=== PATIENT | male | born 1940 | race Caucasian/White ===

== ENCOUNTER 2018-01-15 17:04 | Inpatient (IN) | payer MEDICARE, MEDICAID ==
[~2018-01-15] VITALS: Ht 167.6 cm; Wt 123.3 kg
--- NOTE | ~2018-01-15 | EC ---
PATIENT:JEEVAN JOSEPH DATE OF SERVICE: 01/15/18 SEX: M MEDICAL RECORD: [id number] DATE OF : 38 LOCATION:D.M2 D.212 AGE OF PATIENT: 77 ADMISSION DATE: 01/15/18 REFERRING PHYSICIAN: INTERPRETING PHYSICIAN: CJ BRANDON MD ECHOCARDIOGRAM REPORT ECHO CHARGES 4 ECHO COMPLETE Date: 01/18 CLINICAL DIAGNOSIS: DYSPNEA ECHOCARDIOGRAPHIC MEASUREMENTS (adult normal given) AC root (d.<3.7cm) 4.3 cm LV Septum d (<1.2 cm> 2.0 cm Valve Excursion 2.2 cm LV Septum (systole) 2.2 cm Left Atria (s.<4.0cm> 4.3 cm LVPW d(<1.2cm) 1.8 cm RV (d.<2.3cm) 4.4 cm LVPW (sytole) 2.1 cm LV diastole(<5.6CM) 6.1 cm MV E-F(>70mm/sec) cm LV systole 5.1 cm LVOT Diameter 2.0 cm MV exc.(>10mm) 1.6 cm Est.ejection fraction (50-75%) % DOPPLER: LVIT cm/sec A 67.0 cm/sec E 40.0 cm/sec LA cm/sec RVSP 17 mmHg LVOT 102 cm/sec AOP1/2T m/s Asc. Ao 131 cm/sec RVOT 99 cm/sec RA cm/sec PA 137 cm/sec AV Gradient Peak 6.86 mmHg AV Mean 1.35 mmHg AV Area 2.4 cm MV Gradient Peak 3.81 mmHg MV Mean 1.35 mmHg MV Area cm COMMENTS: Clean In Places Operator: Svetlana EATON Pulping Machine Operator: 1 Dr. Brandon TAPE# PACS Pericardial Effusion N DATE OF SERVICE: 01/18/2018 FINDINGS: 1. Left ventricular chamber size is within normal limits. Left ventricular systolic function is normal. Overall ejection fraction estimated at 55% to 60%. 2. Left atrium, right atrium, and right ventricle chamber size are mildly dilated. Left atrium measures 4.3 cm. 3. Valvular structures have normal structure and motion. 4. Doppler interrogation only reveals trace tricuspid regurgitation, no other valvular insufficiency or stenosis. ECHOCARDIOGRAM REPORT [id number] JEEVAN JOSEPH 5. No evidence of pericardial effusion or left ventricular thrombus. TRANSINT:[id number] Voice Confirmation ID: [id number] DOCUMENT ID: [id number] CJ BRANDON MD at 1725 CC: [id number] DICTATION DATE: 01/18/18 1212 LVN HOME HEALTH: 01/18/18 1228 ADM IN [facility] [address] [place] [address]
--- NOTE | ~2018-01-15 | CN ---
PATIENT NAME:JEEVAN JOSEPH MEDICAL RECORD: [id number] : 38 LOCATION:D.MS Rothman2208 ADMIT DATE: 01/15/18 ACCOUNT: [id number] CONSULTING PHYSICIAN: CARLOS FULLER MD REFERRING PHYSICIAN: NGOZI JUAREZ MD DATE OF CONSULTATION: 01/16/2018 CONSULT REQUESTING PHYSICIAN: Ngozi Juarez MD REASON FOR CONSULTATION: Acute exacerbation of chronic obstructive pulmonary disease and fever. HISTORY OF PRESENT ILLNESS: Mr. Joseph is a 77-year-old gentleman, very well known to me. According to the , the patient is sick. The patient does have a history of COPD, home oxygen dependent. he is sick for the last few days. He is coughing. He has a fever of 101.5. He also is complaining of chest pain. There are also chills and associated nausea and vomiting. The cough is productive with greenish color sputum. His chest hurts when he coughs. REVIEW OF SYSTEMS: Mainly in the history of present illness. PAST MEDICAL HISTORY: 1. COPD. 2. Chronic hypoxic respiratory failure. 3. Emphysema. 4. Coronary artery disease. 5. Hypertension. 6. Diabetes mellitus. 7. Neuropathy. 8. Anxiety, depression. PAST SURGICAL HISTORY: 1. He has a back surgery. 2. Prostatectomy. 3. Leg surgery. 4. Cardiac catheterization and stent placement. ALLERGIES: HE IS ALLERGIC TO PENICILLIN. MEDICATIONS: On Meditech is reviewed. He is on IV Levaquin. PERSONAL AND SOCIAL HISTORY: The patient has a history of smoking. He quit 3 years ago. He is a nondrinker. FAMILY HISTORY: Significant for cardiovascular disease and diabetes. PHYSICAL EXAMINATION: GENERAL: Now, the patient is lying comfortably in bed. He is not in acute distress. VITAL SIGNS: The blood pressure is 165/85, pulse is 84, respiration is 19, temperature is 97.8, SpO2 is 91% on 4.5 liter nasal cannula. HEENT: Conjunctivae are pink. Sclerae are not icteric. NECK: Supple, no JVD. CHEST: The chest excursion is minimal with bilateral crackles. No wheezing. HEART: Rhythm regular, normal sound, no murmur. CONSULT REPORT [id number] JEEVAN JOSEPH ABDOMEN: Soft, bowel sounds present. No hepatosplenomegaly. RECTAL: Deferred. EXTREMITIES: No cyanosis, no clubbing, no pedal edema. SKIN: Warm, normal turgor. CENTRAL NERVOUS SYSTEM: The patient is awake and alert. There are no obvious cranial abnormality. The gait was not tested. CHEST RADIOGRAPH: There is a patchy infiltrate, bibasilar. There is also prominent pulmonary vessel increased interstitial marking. OTHER LABORATORY DATA: CBC: WBC 8.3, hemoglobin 14.8, hematocrit 45.8, the platelet count is 216, the neutrophils are 90.7%. ABG: The pH is 7.33, pCO2 of 64.3, the pO2 is 66. IMPRESSION: 1. Nyhrp-vf-fpfsqnz hypoxic hypercapnic respiratory failure. 2. Respiratory acidosis. 3. Acute exacerbation of chronic obstructive pulmonary disease. 4. Pneumonia consistent with community-acquired pneumonia, bibasilar. 5. Pulmonary edema. 6. Elevated proBNP consistent with a congestive heart failure. RECOMMENDATION: 1. Continue Levaquin. 2. Methylprednisolone IV. 3. Albuterol ipratropium nebulizer. 4. Brovana, budesonide nebulizer. 5. We will diurese the patient. Follow up on the CT scan of the chest. Dr. Juarez, thank you for involving me in the care of Mr. Joseph. TRANSINT:[id number] Voice Confirmation ID: [id number] DOCUMENT ID: [id number] CARLOS FULLER MD at 1208 CC: NGOZI JUAREZ MD [id number] DICTATION DATE: 01/16/18 165 INSULATOR TECHNICIAN: 01/16/18 1741 ADM IN [place] [id number] [place] [address]
[~2018-01-15 17:04] MED LIST: ASPIRIN325 MG PO; BAYER CHEWABLE81 MG PO; CATAPRES0.1 MG PO; CELEXA20 MG PO; COMBIGAN OPHT DR5 ML EACH EYE; FLOMAX0.4 MG PO; GLUCOPHAGE500 MG PO; HYDROCHLOROTHIA25 MG PO; HYDROCODON-ACE1 EAC6 PO; HYDROCODON-ACE1 EAC7 PO; LASIX20 MG PO; LEVAQUIN750 MG PO; LIPITOR10 MG PO; MUCINEX DM ER1 EAC1 PO; MYRBETRIQ50 MG PO; OMNICEF300 MG PO; PHENERGAN DM SYR5 ML PO; PLAVIX75 MG PO; PREDNISONE20 MG PO; PROAIR HFA8.5 GM INH; PROTONIX40 MG PO; SALINE NASAL SP45 ML NS; VALIUM5 MG PO; ZESTRIL20 MG PO; myrbetriq PO
[2018-01-15 18:00] LABS: BASOPHILS 0.2 % (0-2); HEMATOCRIT 45.1 % (42.0-54.0); HEMOGLOBIN 14.4 g/dL (13.5-17.5); IMMATURE GRANULOCYTES 0.2 % (0-5); LYMPHOCYTES 31.1 % (15-50); MCH 32.6 pg (26.0-34.0); MCHC 31.9 g/dL (31.0-37.0); MEAN PLATELET VOLUME 11.1 fL (7.4-10.4); MONOCYTES 6.9 % (2-11); NEUTROPHILS 57.6 % (40-80); RBC 4.42 10x6/uL (4.20-6.10); WBC 8.3 10x3/uL (4.8-10.8)
[2018-01-15 18:10] LABS: PLATELET COUNT 182 10x3/uL (130-400)
[2018-01-15 18:15] LABS: ALBUMIN 3.4 g/dL (3.4-5.0); ALKALINE PHOSPHATASE 73 U/L (46-116); ALT (SGPT) 19 U/L (10-68); CALC OSMOLALITY 297 mosm/kg (275-300); CALCIUM 8.9 mg/dL (8.5-10.1); CARBON DIOXIDE 33.8 mmol/L (21.0-32.0); CHLORIDE - SERUM 103 mmol/L (98-107); CREATININE - SERUM 1.4 mg/dL (0.6-1.3); GLUCOSE 149 mg/dL (74-106); POTASSIUM - SERUM 3.8 mmol/L (3.5-5.1); PROTEIN - SERUM 6.3 g/dL (6.4-8.2); SODIUM 145 mmol/L (136-145); UREA NITROGEN 28 mg/dL (7-18); eGFR NON AFRICAN AMERICAN 52 mL/min (90-120)
[2018-01-15 18:18] LABS: INR 1.02 (0.85-1.17)
[2018-01-15 18:19] LABS: APTT 28.5 SECONDS (22.8-39.4)
[2018-01-15 18:20] LABS: D-DIMER-QUANTITATIVE 0.92 ug/mLFEU (0.20-0.54)
[2018-01-15 18:37] LABS: CKMB 1.2 U/L (0.0-3.6); CREATINE KINASE 30 UL (21-232); PRO BNP 517 pg/mL (0-450); TROPONIN-I < 0.017 ng/mL (0.000-0.060)
[2018-01-15] MEDS ORDERED: OXYBUTYNIN CHLOR5 MG PO (21:04)
[2018-01-15] MEDS ORDERED: LYRICA75 MG PO (21:05)
[2018-01-15 21:11] VITALS: BP 160/79
[2018-01-16] VITALS (7 sets, daily range): BP systolic 100–170; BP diastolic 73–85; BMI 40.1; BMI 40.0
[2018-01-16 11:53] LABS: BASOPHILS 0 % (0-2); EOSINOPHILS 0 % (0-7); HEMATOCRIT 45.8 % (42.0-54.0); HEMOGLOBIN 14.8 g/dL (13.5-17.5); IMMATURE GRANULOCYTES 0.2 % (0-5); LYMPHOCYTES 6.8 % (15-50); MCH 32.5 pg (26.0-34.0); MCHC 32.3 g/dL (31.0-37.0); MCV 100.4 fL (80.0-100.0); MEAN PLATELET VOLUME 11.1 fL (7.4-10.4); MONOCYTES 2.3 % (2-11); NEUTROPHILS 90.7 % (40-80); PLATELET COUNT 216 10x3/uL (130-400); RBC 4.56 10x6/uL (4.20-6.10); RDW 12.7 % (11.5-14.5); WBC 8.3 10x3/uL (4.8-10.8)
[2018-01-16 12:04] LABS: ALBUMIN 3.3 g/dL (3.4-5.0); ANION GAP 13.9 mmol/L (8-16); BILIRUBIN - TOTAL 0.32 mg/dL (0.2-1.3); CALCIUM 9.2 mg/dL (8.5-10.1); CARBON DIOXIDE 31.1 mmol/L (21.0-32.0); CREATININE - SERUM 1.3 mg/dL (0.6-1.3); PROTEIN - SERUM 6.8 g/dL (6.4-8.2)
[2018-01-17] VITALS: BP 159/82
[2018-01-17 04:00] VITALS: BP 138/73
[2018-01-17 05:56] LABS: BASOPHILS 0 % (0-2); EOSINOPHILS 0 % (0-7); HEMATOCRIT 45.4 % (42.0-54.0); HEMOGLOBIN 14.7 g/dL (13.5-17.5); IMMATURE GRANULOCYTES 0.2 % (0-5); LYMPHOCYTES 7.7 % (15-50); MCH 32.2 pg (26.0-34.0); MCHC 32.4 g/dL (31.0-37.0); MCV 99.3 fL (80.0-100.0); MEAN PLATELET VOLUME 11.5 fL (7.4-10.4); MONOCYTES 4.2 % (2-11); NEUTROPHILS 87.9 % (40-80); PLATELET COUNT 229 10x3/uL (130-400); RBC 4.57 10x6/uL (4.20-6.10); RDW 12.7 % (11.5-14.5); WBC 9.8 10x3/uL (4.8-10.8)
[2018-01-17 06:14] LABS: ALBUMIN 3.2 g/dL (3.4-5.0); ANION GAP 9.3 mmol/L (8-16); BILIRUBIN - TOTAL 0.3 mg/dL (0.2-1.3); CALCIUM 9.1 mg/dL (8.5-10.1); CARBON DIOXIDE 33.6 mmol/L (21.0-32.0); CREATININE - SERUM 1.1 mg/dL (0.6-1.3); POTASSIUM - SERUM 3.9 mmol/L (3.5-5.1); PROTEIN - SERUM 6.4 g/dL (6.4-8.2)
[2018-01-17 08:53] VITALS: BP 161/71
[2018-01-17 12:36] VITALS: BP 136/63
[2018-01-17 15:38] VITALS: BP 166/88
[2018-01-18 04:00] VITALS: BP 179/83
[2018-01-18 05:54] LABS: BASOPHILS 0 % (0-2); EOSINOPHILS 0 % (0-7); HEMOGLOBIN 14.5 g/dL (13.5-17.5); IMMATURE GRANULOCYTES 0.2 % (0-5); LYMPHOCYTES 7.1 % (15-50); MCH 32.2 pg (26.0-34.0); MCHC 32.2 g/dL (31.0-37.0); MEAN PLATELET VOLUME 11.4 fL (7.4-10.4); MONOCYTES 5.3 % (2-11); NEUTROPHILS 87.4 % (40-80); PLATELET COUNT 210 10x3/uL (130-400); RDW 12.9 % (11.5-14.5); WBC 9.6 10x3/uL (4.8-10.8)
[2018-01-18 06:15] LABS: ANION GAP 6.9 mmol/L (8-16); BILIRUBIN - TOTAL 0.2 mg/dL (0.2-1.3); CALCIUM 9.1 mg/dL (8.5-10.1); CARBON DIOXIDE 36.3 mmol/L (21.0-32.0); CREATININE - SERUM 1.2 mg/dL (0.6-1.3); POTASSIUM - SERUM 4.2 mmol/L (3.5-5.1); PROTEIN - SERUM 6.1 g/dL (6.4-8.2)
[2018-01-18 08:44] VITALS: BP 144/75
[2018-01-18 11:50] VITALS: BP 130/70
[2018-01-18 16:44] VITALS: BP 132/68
[2018-01-18 21:06] VITALS: BP 126/71
[2018-01-19 01:46] VITALS: BP 125/61
[2018-01-19 05:31] LABS: BASOPHILS 0 % (0-2); EOSINOPHILS 0 % (0-7); HEMATOCRIT 45.3 % (42.0-54.0); HEMOGLOBIN 14.5 g/dL (13.5-17.5); IMMATURE GRANULOCYTES 0.2 % (0-5); LYMPHOCYTES 10.6 % (15-50); MCH 32.4 pg (26.0-34.0); MCV 101.1 fL (80.0-100.0); MEAN PLATELET VOLUME 11.5 fL (7.4-10.4); MONOCYTES 5.3 % (2-11); NEUTROPHILS 83.9 % (40-80); PLATELET COUNT 205 10x3/uL (130-400); RBC 4.48 10x6/uL (4.20-6.10); RDW 12.9 % (11.5-14.5); WBC 9.6 10x3/uL (4.8-10.8)
[2018-01-19 05:40] VITALS: BP 117/56
[2018-01-19 05:51] LABS: ALBUMIN 2.7 g/dL (3.4-5.0); ANION GAP 8.3 mmol/L (8-16); BILIRUBIN - TOTAL 0.28 mg/dL (0.2-1.3); CALCIUM 8.8 mg/dL (8.5-10.1); CARBON DIOXIDE 34.9 mmol/L (21.0-32.0); CREATININE - SERUM 1.3 mg/dL (0.6-1.3); POTASSIUM - SERUM 4.2 mmol/L (3.5-5.1); PROTEIN - SERUM 5.7 g/dL (6.4-8.2)
[2018-01-19 08:33] VITALS: BP 130/70
[2018-01-19 11:41] VITALS: BP 111/66
[2018-01-19 15:37] VITALS: BP 119/76
[2018-01-19 21:09] VITALS: BP 135/70
[2018-01-20 01:02] VITALS: BP 145/65
[2018-01-20 05:35] LABS: BASOPHILS 0 % (0-2); EOSINOPHILS 0 % (0-7); HEMATOCRIT 45.9 % (42.0-54.0); HEMOGLOBIN 14.9 g/dL (13.5-17.5); IMMATURE GRANULOCYTES 0.3 % (0-5); LYMPHOCYTES 11.6 % (15-50); MCH 32.5 pg (26.0-34.0); MCHC 32.5 g/dL (31.0-37.0); MCV 100.2 fL (80.0-100.0); MEAN PLATELET VOLUME 11.2 fL (7.4-10.4); NEUTROPHILS 81.1 % (40-80); PLATELET COUNT 203 10x3/uL (130-400); RBC 4.58 10x6/uL (4.20-6.10); RDW 12.7 % (11.5-14.5); WBC 9.7 10x3/uL (4.8-10.8)
[2018-01-20 06:17] LABS: ALBUMIN 2.8 g/dL (3.4-5.0); ANION GAP 7.1 mmol/L (8-16); BILIRUBIN - TOTAL 0.3 mg/dL (0.2-1.3); CALCIUM 8.5 mg/dL (8.5-10.1); CARBON DIOXIDE 36.1 mmol/L (21.0-32.0); CREATININE - SERUM 1.4 mg/dL (0.6-1.3); POTASSIUM - SERUM 4.2 mmol/L (3.5-5.1); PROTEIN - SERUM 5.8 g/dL (6.4-8.2)
[2018-01-20 08:36] VITALS: BP 120/81
[2018-01-20 11:34] VITALS: BP 136/76
[2018-01-20 15:42] VITALS: BP 142/78
[2018-01-20 21:15] VITALS: BP 138/76
[2018-01-21 01:05] VITALS: BP 147/71
[2018-01-21 05:16] VITALS: BP 146/72
[2018-01-21 06:01] LABS: BASOPHILS 0 % (0-2); EOSINOPHILS 0 % (0-7); HEMATOCRIT 45.7 % (42.0-54.0); HEMOGLOBIN 14.5 g/dL (13.5-17.5); IMMATURE GRANULOCYTES 0.2 % (0-5); LYMPHOCYTES 10.4 % (15-50); MCH 31.7 pg (26.0-34.0); MCHC 31.7 g/dL (31.0-37.0); MCV 99.8 fL (80.0-100.0); MEAN PLATELET VOLUME 11.5 fL (7.4-10.4); MONOCYTES 5.5 % (2-11); NEUTROPHILS 83.9 % (40-80); PLATELET COUNT 217 10x3/uL (130-400); RBC 4.58 10x6/uL (4.20-6.10); RDW 12.6 % (11.5-14.5); WBC 9.9 10x3/uL (4.8-10.8)
[2018-01-21 06:16] LABS: ALBUMIN 2.6 g/dL (3.4-5.0); ANION GAP 5.4 mmol/L (8-16); BILIRUBIN - TOTAL 0.3 mg/dL (0.2-1.3); CALCIUM 8.4 mg/dL (8.5-10.1); CARBON DIOXIDE 36.9 mmol/L (21.0-32.0); CREATININE - SERUM 1.3 mg/dL (0.6-1.3); POTASSIUM - SERUM 4.3 mmol/L (3.5-5.1); PROTEIN - SERUM 5.5 g/dL (6.4-8.2)
[2018-01-21 07:54] VITALS: BP 137/80
[2018-01-21 13:46] VITALS: BP 104/67
[2018-01-21 15:29] VITALS: BP 126/75
[2018-01-21 21:33] VITALS: BP 122/65
[2018-01-22 05:11] LABS: BASOPHILS 0 % (0-2); EOSINOPHILS 0 % (0-7); HEMATOCRIT 44.9 % (42.0-54.0); HEMOGLOBIN 14.5 g/dL (13.5-17.5); IMMATURE GRANULOCYTES 0.3 % (0-5); LYMPHOCYTES 8.8 % (15-50); MCH 32.1 pg (26.0-34.0); MCHC 32.3 g/dL (31.0-37.0); MCV 99.3 fL (80.0-100.0); MEAN PLATELET VOLUME 11.8 fL (7.4-10.4); MONOCYTES 5.7 % (2-11); NEUTROPHILS 85.2 % (40-80); PLATELET COUNT 188 10x3/uL (130-400); RBC 4.52 10x6/uL (4.20-6.10); RDW 12.7 % (11.5-14.5); WBC 10.5 10x3/uL (4.8-10.8)
[2018-01-22 05:27] LABS: INR 1.12 (0.85-1.17)
[2018-01-22 06:01] LABS: ALBUMIN 2.5 g/dL (3.4-5.0); ALKALINE PHOSPHATASE 66 U/L (46-116); ALT (SGPT) 24 U/L (10-68); CALC OSMOLALITY 301 mosm/kg (275-300); CALCIUM 8.7 mg/dL (8.5-10.1); CARBON DIOXIDE 35.3 mmol/L (21.0-32.0); CHLORIDE - SERUM 102 mmol/L (98-107); CREATININE - SERUM 1.3 mg/dL (0.6-1.3); GLUCOSE 231 mg/dL (74-106); POTASSIUM - SERUM 4.2 mmol/L (3.5-5.1); PROTEIN - SERUM 5.4 g/dL (6.4-8.2); SODIUM 141 mmol/L (136-145); UREA NITROGEN 51 mg/dL (7-18); eGFR NON AFRICAN AMERICAN 57 mL/min (90-120)
[2018-01-22 06:04] LABS: C-REACTIVE PROTEIN < 0.2 mg/dL (0.0-0.9)
[2018-01-22 06:12] VITALS: BP 150/78
[2018-01-22 09:14] VITALS: BP 132/84
[2018-01-22 11:40] VITALS: BP 88/48
[2018-01-22 15:36] VITALS: BP 89/52
[2018-01-22 20:00] VITALS: BP 90/51
[2018-01-23] VITALS: BP 93/58
[2018-01-23 04:00] VITALS: BP 96/58
[2018-01-23 07:59] VITALS: BP 96/58
[2018-01-23 11:27] VITALS: BP 89/51
[2018-01-23 13:47] LABS: HEMOGLOBIN 13.5 g/dL (13.5-17.5); MCH 32.1 pg (26.0-34.0); MCHC 32.1 g/dL (31.0-37.0); MCV 99.8 fL (80.0-100.0); MEAN PLATELET VOLUME 11.6 fL (7.4-10.4); PLATELET COUNT 219 10x3/uL (130-400); RBC 4.21 10x6/uL (4.20-6.10); RDW 12.8 % (11.5-14.5)
[2018-01-23 13:58] LABS: ANION GAP 8.3 mmol/L (8-16); CALCIUM 8.6 mg/dL (8.5-10.1); CARBON DIOXIDE 33.9 mmol/L (21.0-32.0); POTASSIUM - SERUM 4.2 mmol/L (3.5-5.1)
[2018-01-23 13:59] LABS: CREATININE - SERUM 1.7 mg/dL (0.6-1.3)
[2018-01-23 14:22] LABS: WBC 18.3 10x3/uL (4.8-10.8)
[2018-01-23 15:09] LABS: LYMPHOCYTES 9 % (15-50); NEUTROPHILS 91 % (40-80); PLATELET ESTIMATE NORMAL
[2018-01-23 15:22] VITALS: BP 101/59
[2018-01-23 20:00] VITALS: BP 80/44
[2018-01-23 23:58] LABS: HEMATOCRIT 33.5 % (42.0-54.0); LYMPHOCYTES 6.2 % (15-50); MCH 31.7 pg (26.0-34.0); MCHC 32.8 g/dL (31.0-37.0); MCV 96.5 fL (80.0-100.0); MEAN PLATELET VOLUME 10.6 fL (7.4-10.4); NEUTROPHILS 87.3 % (40-80); PLATELET COUNT 199 10x3/uL (130-400); RBC 3.47 10x6/uL (4.20-6.10); RDW 12.5 % (11.5-14.5); WBC 13.3 10x3/uL (4.8-10.8)
[2018-01-24] VITALS (14 sets, daily range): BP systolic 72–109; BP diastolic 38–64
[2018-01-24 00:08] LABS: ANION GAP 6.3 mmol/L (8-16); CALCIUM 8.1 mg/dL (8.5-10.1); POTASSIUM - SERUM 4.3 mmol/L (3.5-5.1)
[2018-01-24 00:11] LABS: CREATININE - SERUM 2.2 mg/dL (0.6-1.3)
[2018-01-24 08:04] LABS: BASOPHILS 0 % (0-2); EOSINOPHILS 0.1 % (0-7); HEMATOCRIT 31.1 % (42.0-54.0); HEMOGLOBIN 10.2 g/dL (13.5-17.5); IMMATURE GRANULOCYTES 0.5 % (0-5); LYMPHOCYTES 11.7 % (15-50); MCH 31.9 pg (26.0-34.0); MCHC 32.8 g/dL (31.0-37.0); MCV 97.2 fL (80.0-100.0); MEAN PLATELET VOLUME 11.2 fL (7.4-10.4); MONOCYTES 8.3 % (2-11); NEUTROPHILS 79.4 % (40-80); PLATELET COUNT 218 10x3/uL (130-400); RDW 12.4 % (11.5-14.5); WBC 13.1 10x3/uL (4.8-10.8)
[2018-01-24 08:24] LABS: ANION GAP 5.3 mmol/L (8-16); CALCIUM 8.6 mg/dL (8.5-10.1); CARBON DIOXIDE 35.2 mmol/L (21.0-32.0); CREATININE - SERUM 2.2 mg/dL (0.6-1.3); POTASSIUM - SERUM 4.5 mmol/L (3.5-5.1)
[2018-01-24 18:00] LABS: BASOPHILS 0.1 % (0-2); EOSINOPHILS 0 % (0-7); HEMATOCRIT 29.1 % (42.0-54.0); HEMOGLOBIN 9.6 g/dL (13.5-17.5); IMMATURE GRANULOCYTES 0.4 % (0-5); LYMPHOCYTES 7.5 % (15-50); MCH 31.6 pg (26.0-34.0); MCV 95.7 fL (80.0-100.0); MEAN PLATELET VOLUME 11.5 fL (7.4-10.4); MONOCYTES 10.5 % (2-11); NEUTROPHILS 81.5 % (40-80); PLATELET COUNT 255 10x3/uL (130-400); RBC 3.04 10x6/uL (4.20-6.10); RDW 12.5 % (11.5-14.5)
[2018-01-24 18:08] LABS: WBC 18.5 10x3/uL (4.8-10.8)
[2018-01-24 18:38] LABS: ALBUMIN 2.2 g/dL (3.4-5.0); ANION GAP 8.9 mmol/L (8-16); BILIRUBIN - TOTAL 0.34 mg/dL (0.2-1.3); CALCIUM 8.1 mg/dL (8.5-10.1); CARBON DIOXIDE 31.9 mmol/L (21.0-32.0); POTASSIUM - SERUM 4.8 mmol/L (3.5-5.1); PROTEIN - SERUM 4.5 g/dL (6.4-8.2)
[2018-01-24 18:39] LABS: CREATININE - SERUM 2.8 mg/dL (0.6-1.3)
[2018-01-25] VITALS (65 sets, daily range): BP systolic 81–158; BP diastolic 41–98
[2018-01-25 05:01] LABS: BASOPHILS 0 % (0-2); EOSINOPHILS 0.1 % (0-7); HEMATOCRIT 28.1 % (42.0-54.0); HEMOGLOBIN 9.2 g/dL (13.5-17.5); IMMATURE GRANULOCYTES 0.6 % (0-5); LYMPHOCYTES 4.2 % (15-50); MCH 31.4 pg (26.0-34.0); MCHC 32.7 g/dL (31.0-37.0); MCV 95.9 fL (80.0-100.0); MEAN PLATELET VOLUME 11.5 fL (7.4-10.4); MONOCYTES 6.8 % (2-11); NEUTROPHILS 88.3 % (40-80); PLATELET COUNT 259 10x3/uL (130-400); RBC 2.93 10x6/uL (4.20-6.10); RDW 12.6 % (11.5-14.5); WBC 17.7 10x3/uL (4.8-10.8)
[2018-01-25 05:46] LABS: CALC OSMOLALITY 315 mosm/kg (275-300); CARBON DIOXIDE 27.8 mmol/L (21.0-32.0); CHLORIDE - SERUM 99 mmol/L (98-107); CREATINE KINASE 471 UL (21-232); CREATININE - SERUM 3.3 mg/dL (0.6-1.3); GLUCOSE 283 mg/dL (74-106); POTASSIUM - SERUM 4.8 mmol/L (3.5-5.1); SODIUM 134 mmol/L (136-145); UREA NITROGEN 118 mg/dL (7-18); eGFR NON AFRICAN AMERICAN 19 mL/min (90-120)
[2018-01-25 05:51] LABS: CKMB 3.5 U/L (0.0-3.6)
[2018-01-26] VITALS (24 sets, daily range): BP systolic 99–128; BP diastolic 40–86; Ht 167.6 cm; Wt 123.3 kg
[2018-01-26 03:55] LABS: BASOPHILS 0 % (0-2); EOSINOPHILS 0 % (0-7); HEMATOCRIT 22.9 % (42.0-54.0); HEMOGLOBIN 7.6 g/dL (13.5-17.5); IMMATURE GRANULOCYTES 0.4 % (0-5); MCH 31.5 pg (26.0-34.0); MCHC 33.2 g/dL (31.0-37.0); MONOCYTES 4.7 % (2-11); NEUTROPHILS 89.9 % (40-80); RBC 2.41 10x6/uL (4.20-6.10); RDW 12.6 % (11.5-14.5)
[2018-01-26 04:04] LABS: PLATELET COUNT 178 10x3/uL (130-400); WBC 12.7 10x3/uL (4.8-10.8)
[2018-01-26 04:17] LABS: ALBUMIN 1.9 g/dL (3.4-5.0); ANION GAP 15.5 mmol/L (8-16); BILIRUBIN - DIRECT 0.16 mg/dL (0.00-0.30); BILIRUBIN - INDIRECT 0.25 mg/dL (0.00-1.00); BILIRUBIN - TOTAL 0.41 mg/dL (0.2-1.3); CALCIUM 7.9 mg/dL (8.5-10.1); CARBON DIOXIDE 25.9 mmol/L (21.0-32.0); CREATININE - SERUM 3.3 mg/dL (0.6-1.3); MAGNESIUM - SERUM 2.7 mg/dL (1.8-2.4); PHOSPHOROUS 7.8 mg/dL (2.5-4.9); POTASSIUM - SERUM 4.4 mmol/L (3.5-5.1); PROTEIN - SERUM 4.6 g/dL (6.4-8.2)
[2018-01-27] VITALS (24 sets, daily range): BP systolic 114–165; BP diastolic 41–72
[2018-01-27 04:54] LABS: BASOPHILS 0 % (0-2); EOSINOPHILS 0 % (0-7); HEMATOCRIT 23.1 % (42.0-54.0); HEMOGLOBIN 7.8 g/dL (13.5-17.5); IMMATURE GRANULOCYTES 0.5 % (0-5); LYMPHOCYTES 4.8 % (15-50); MCH 30.4 pg (26.0-34.0); MCHC 33.8 g/dL (31.0-37.0); MEAN PLATELET VOLUME 11.1 fL (7.4-10.4); MONOCYTES 4.2 % (2-11); NEUTROPHILS 90.5 % (40-80); RBC 2.57 10x6/uL (4.20-6.10); RDW 16.2 % (11.5-14.5)
[2018-01-27 04:55] LABS: MCV 89.9 fL (80.0-100.0); PLATELET COUNT 132 10x3/uL (130-400); WBC 8.4 10x3/uL (4.8-10.8)
[2018-01-27 05:11] LABS: ANION GAP 12.7 mmol/L (8-16); CARBON DIOXIDE 26.8 mmol/L (21.0-32.0); POTASSIUM - SERUM 4.5 mmol/L (3.5-5.1)
[2018-01-27 05:17] LABS: CREATININE - SERUM 2.4 mg/dL (0.6-1.3)
[2018-01-28] VITALS (11 sets, daily range): BP systolic 132–160; BP diastolic 49–98
[2018-01-28 04:34] LABS: BASOPHILS 0 % (0-2); EOSINOPHILS 0 % (0-7); HEMATOCRIT 26.3 % (42.0-54.0); HEMOGLOBIN 8.8 g/dL (13.5-17.5); IMMATURE GRANULOCYTES 0.9 % (0-5); LYMPHOCYTES 4.9 % (15-50); MCHC 33.5 g/dL (31.0-37.0); MCV 89.8 fL (80.0-100.0); MEAN PLATELET VOLUME 11.1 fL (7.4-10.4); MONOCYTES 5.1 % (2-11); NEUTROPHILS 89.1 % (40-80); PLATELET COUNT 123 10x3/uL (130-400); RBC 2.93 10x6/uL (4.20-6.10); RDW 15.7 % (11.5-14.5); WBC 9.2 10x3/uL (4.8-10.8)
[2018-01-28 04:45] LABS: APTT 22.4 SECONDS (22.8-39.4); INR 1.12 (0.85-1.17)
[2018-01-28 04:46] LABS: D-DIMER-QUANTITATIVE 0.81 ug/mLFEU (0.20-0.54)
[2018-01-28 04:52] LABS: ANION GAP 8.4 mmol/L (8-16); CALCIUM 7.9 mg/dL (8.5-10.1); CARBON DIOXIDE 28.7 mmol/L (21.0-32.0); POTASSIUM - SERUM 5.1 mmol/L (3.5-5.1)
[2018-01-28 04:57] LABS: CREATININE - SERUM 1.6 mg/dL (0.6-1.3)
[2018-01-29] VITALS: BP 130/65
[2018-01-29 04:00] VITALS: BP 142/64
[2018-01-29 05:06] LABS: BASOPHILS 0 % (0-2); EOSINOPHILS 0 % (0-7); HEMATOCRIT 28.4 % (42.0-54.0); HEMOGLOBIN 9.4 g/dL (13.5-17.5); IMMATURE GRANULOCYTES 0.8 % (0-5); LYMPHOCYTES 5.7 % (15-50); MCH 30.4 pg (26.0-34.0); MCHC 33.1 g/dL (31.0-37.0); MEAN PLATELET VOLUME 11.5 fL (7.4-10.4); NEUTROPHILS 91.5 % (40-80); PLATELET COUNT 143 10x3/uL (130-400); RBC 3.09 10x6/uL (4.20-6.10); RDW 15.5 % (11.5-14.5)
[2018-01-29 05:07] LABS: MCV 91.9 fL (80.0-100.0); WBC 13.8 10x3/uL (4.8-10.8)
[2018-01-29 05:28] LABS: ALBUMIN 1.8 g/dL (3.4-5.0); ANION GAP 11.4 mmol/L (8-16); BILIRUBIN - TOTAL 0.52 mg/dL (0.2-1.3); CALCIUM 7.9 mg/dL (8.5-10.1); CARBON DIOXIDE 27.6 mmol/L (21.0-32.0); CREATININE - SERUM 1.3 mg/dL (0.6-1.3); PROTEIN - SERUM 4.4 g/dL (6.4-8.2)
[2018-01-29 08:12] VITALS: BP 132/69
[2018-01-29 12:00] VITALS: BP 167/53
[2018-01-29 21:45] VITALS: BP 163/75
[2018-01-30 01:01] VITALS: BP 168/74
[2018-01-30 04:34] LABS: BASOPHILS 0.1 % (0-2); EOSINOPHILS 0.1 % (0-7); HEMATOCRIT 27.7 % (42.0-54.0); HEMOGLOBIN 8.9 g/dL (13.5-17.5); IMMATURE GRANULOCYTES 1.2 % (0-5); MCHC 32.1 g/dL (31.0-37.0); MCV 93.3 fL (80.0-100.0); MEAN PLATELET VOLUME 10.9 fL (7.4-10.4); MONOCYTES 4.9 % (2-11); NEUTROPHILS 89.7 % (40-80); PLATELET COUNT 130 10x3/uL (130-400); RBC 2.97 10x6/uL (4.20-6.10); RDW 15.1 % (11.5-14.5); WBC 11.3 10x3/uL (4.8-10.8)
[2018-01-30 04:45] VITALS: BP 154/64
[2018-01-30 04:56] LABS: ALBUMIN 1.8 g/dL (3.4-5.0); ANION GAP 4.4 mmol/L (8-16); BILIRUBIN - TOTAL 0.8 mg/dL (0.2-1.3); CALCIUM 8.3 mg/dL (8.5-10.1); CARBON DIOXIDE 33.1 mmol/L (21.0-32.0); CREATININE - SERUM 1.3 mg/dL (0.6-1.3); POTASSIUM - SERUM 5.5 mmol/L (3.5-5.1); PROTEIN - SERUM 4.2 g/dL (6.4-8.2)
[2018-01-30 08:16] VITALS: BP 154/64
[2018-01-30 13:02] VITALS: BP 170/76
[2018-01-30 21:07] VITALS: BP 154/73
[2018-01-31 01:17] VITALS: BP 154/74
[2018-01-31 04:44] VITALS: BP 174/84
[2018-01-31 05:48] LABS: BASOPHILS 0.1 % (0-2); EOSINOPHILS 0.4 % (0-7); HEMOGLOBIN 9.7 g/dL (13.5-17.5); IMMATURE GRANULOCYTES 1.8 % (0-5); LYMPHOCYTES 3.5 % (15-50); MCH 30.4 pg (26.0-34.0); MCHC 32.3 g/dL (31.0-37.0); MONOCYTES 4.5 % (2-11); NEUTROPHILS 89.7 % (40-80); PLATELET COUNT 149 10x3/uL (130-400); RBC 3.19 10x6/uL (4.20-6.10); RDW 14.7 % (11.5-14.5)
[2018-01-31 05:51] LABS: WBC 14.2 10x3/uL (4.8-10.8)
[2018-01-31 06:12] LABS: ALBUMIN 1.8 g/dL (3.4-5.0); ANION GAP 7.9 mmol/L (8-16); BILIRUBIN - TOTAL 0.88 mg/dL (0.2-1.3); CALCIUM 8.4 mg/dL (8.5-10.1); CARBON DIOXIDE 32.3 mmol/L (21.0-32.0); CREATININE - SERUM 1.1 mg/dL (0.6-1.3); POTASSIUM - SERUM 5.2 mmol/L (3.5-5.1); PROTEIN - SERUM 4.4 g/dL (6.4-8.2)
[2018-01-31 08:00] VITALS: BP 187/74
[2018-01-31 12:53] VITALS: BP 167/70
[2018-01-31 16:04] VITALS: BP 171/71
[2018-01-31 20:15] VITALS: BP 168/83
[2018-02-01 01:48] VITALS: BP 174/74
[2018-02-01 04:53] VITALS: BP 164/84
[2018-02-01 05:04] LABS: BASOPHILS 0.1 % (0-2); EOSINOPHILS 0.6 % (0-7); HEMATOCRIT 27.7 % (42.0-54.0); LYMPHOCYTES 3.6 % (15-50); MCH 31.3 pg (26.0-34.0); MCHC 32.5 g/dL (31.0-37.0); MEAN PLATELET VOLUME 10.5 fL (7.4-10.4); MONOCYTES 4.5 % (2-11); NEUTROPHILS 88.2 % (40-80); PLATELET COUNT 155 10x3/uL (130-400); RBC 2.88 10x6/uL (4.20-6.10); RDW 13.8 % (11.5-14.5); WBC 14.8 10x3/uL (4.8-10.8)
[2018-02-01 05:14] LABS: MCV 96.2 fL (80.0-100.0)
[2018-02-01 05:19] LABS: ALBUMIN 1.8 g/dL (3.4-5.0); ANION GAP 6.6 mmol/L (8-16); BILIRUBIN - TOTAL 2.1 mg/dL (0.2-1.3); CARBON DIOXIDE 33.3 mmol/L (21.0-32.0); CREATININE - SERUM 1.1 mg/dL (0.6-1.3); POTASSIUM - SERUM 4.9 mmol/L (3.5-5.1)
[2018-02-01 08:32] VITALS: BP 190/77
[2018-02-01 12:30] VITALS: BP 157/76
[2018-02-01 16:26] VITALS: BP 155/86
[2018-02-01 22:29] VITALS: BP 172/77
[2018-02-02 04:53] VITALS: BP 171/93
[2018-02-02 06:07] LABS: BASOPHILS 0.2 % (0-2); EOSINOPHILS 2.5 % (0-7); HEMATOCRIT 25.3 % (42.0-54.0); HEMOGLOBIN 8.2 g/dL (13.5-17.5); IMMATURE GRANULOCYTES 2.4 % (0-5); LYMPHOCYTES 11.5 % (15-50); MCH 31.7 pg (26.0-34.0); MCHC 32.4 g/dL (31.0-37.0); MCV 97.7 fL (80.0-100.0); MEAN PLATELET VOLUME 10.5 fL (7.4-10.4); MONOCYTES 5.7 % (2-11); NEUTROPHILS 77.7 % (40-80); PLATELET COUNT 157 10x3/uL (130-400); RBC 2.59 10x6/uL (4.20-6.10); RDW 13.5 % (11.5-14.5); WBC 11.8 10x3/uL (4.8-10.8)
[2018-02-02 06:26] LABS: ALBUMIN 1.7 g/dL (3.4-5.0); ANION GAP 5.3 mmol/L (8-16); BILIRUBIN - TOTAL 1.2 mg/dL (0.2-1.3); CALCIUM 8.3 mg/dL (8.5-10.1); CARBON DIOXIDE 31.9 mmol/L (21.0-32.0); CREATININE - SERUM 1.1 mg/dL (0.6-1.3); POTASSIUM - SERUM 4.2 mmol/L (3.5-5.1); PROTEIN - SERUM 4.1 g/dL (6.4-8.2)
[2018-02-02 08:26] VITALS: BP 197/86
[2018-02-02] MEDS ORDERED: BROVANA15 MCG/2 M INH (11:23)
[2018-02-02] MEDS ORDERED: IPRAT-ALBUT 0.5-3 ML INH (11:24)
[2018-02-02] MEDS ORDERED: FLORAJEN3 CAPS460 MG PO (11:24)
[2018-02-02] MEDS ORDERED: PULMICORT0.5 MG/21 UPD (11:25)
[2018-02-02] MEDS ORDERED: PREDNISONE10 MG PO (11:26)
[2018-02-02 12:47] VITALS: BP 163/94
== END 2018-02-02 16:00 | DRG 291 ==
LOC: D.ER 17:04 → D.M2 20:00 → D.ICU 20:00 → D.EDHOLD 20:00 → D.MS 20:00 → D.M2 20:32 → D.ICU 01-24 17:59 → D.MS 01-28 18:37
PROVIDERS: Emergency Medicine; Family Medicine; Internal Medicine Nephrology; Internal Medicine Pulmonary Disease; Specialist
PROC: 5A09457 Assistance with Respiratory Ventilation, 24-96 Consecutive Hours, Continuous Positive Airway Pressure (ICD-10-PCS; 2018-01-24)
PROC: 0W9930Z Drainage of Right Pleural Cavity with Drainage Device, Percutaneous Approach (ICD-10-PCS; principal; 2018-01-25 08:30)
DX: I11.0 Hypertensive heart disease with heart failure (principal); J18.9 Pneumonia, unspecified organism; J96.22 Acute and chronic respiratory failure with hypercapnia; J96.21 Acute and chronic respiratory failure with hypoxia; J93.0 Spontaneous tension pneumothorax; J69.0 Pneumonitis due to inhalation of food and vomit; N18.6 End stage renal disease; J44.0 Chronic obstructive pulmonary disease with (acute) lower respiratory infection; J44.1 Chronic obstructive pulmonary disease with (acute) exacerbation; J98.11 Atelectasis; J81.1 Chronic pulmonary edema; N17.9 Acute kidney failure, unspecified; I25.10 Atherosclerotic heart disease of native coronary artery without angina pectoris; E11.65 Type 2 diabetes mellitus with hyperglycemia; E11.40 Type 2 diabetes mellitus with diabetic neuropathy, unspecified; F32.9 Major depressive disorder, single episode, unspecified; F41.9 Anxiety disorder, unspecified; Z87.891 Personal history of nicotine dependence; N40.0 Benign prostatic hyperplasia without lower urinary tract symptoms; E78.5 Hyperlipidemia, unspecified; I50.23 Acute on chronic systolic (congestive) heart failure; I95.9 Hypotension, unspecified; I13.0 Hypertensive heart and chronic kidney disease with heart failure and stage 1 through stage 4 chronic kidney disease, or unspecified chronic kidney disease; N18.9 Chronic kidney disease, unspecified

== ENCOUNTER 2018-09-27 02:02 | Inpatient (IN) | payer MEDICARE ==
[~2018-09-27] VITALS: Ht 167.6 cm; Wt 102.3 kg
[~2018-09-27 02:02] MED LIST changes: +BROVANA15 MCG/2 M INH; +FLORAJEN3 CAPS460 MG PO; +IPRAT-ALBUT 0.5-3 ML INH; +LYRICA75 MG PO; +OXYBUTYNIN CHLOR5 MG PO; +PREDNISONE10 MG PO; +PULMICORT0.5 MG/21 UPD
[2018-09-27 03:09] LABS: HEMATOCRIT 45.5 % (42.0-54.0); HEMOGLOBIN 15.2 g/dL (13.5-17.5); LYMPHOCYTES 10.5 % (15-50); MCHC 33.4 g/dL (31.0-37.0); MCV 98.7 fL (80.0-100.0); MEAN PLATELET VOLUME 10.7 fL (7.4-10.4); NEUTROPHILS 80.6 % (40-80); RBC 4.61 10x6/uL (4.20-6.10); RDW 12.2 % (11.5-14.5); WBC 13.7 10x3/uL (4.8-10.8)
[2018-09-27 03:16] LABS: PLATELET COUNT 195 10x3/uL (130-400)
[2018-09-27 03:21] LABS: ALBUMIN 2.9 g/dL (3.4-5.0); ANION GAP 10.6 mmol/L (8-16); BILIRUBIN - TOTAL 0.3 mg/dL (0.2-1.3); CALCIUM 9.3 mg/dL (8.5-10.1); CARBON DIOXIDE 34.3 mmol/L (21.0-32.0); CREATININE - SERUM 1.2 mg/dL (0.6-1.3); POTASSIUM - SERUM 3.9 mmol/L (3.5-5.1); PROTEIN - SERUM 6.8 g/dL (6.4-8.2)
[2018-09-27 04:08] VITALS: BP 176/85
--- NOTE | 2018-09-27 04:09 | NUR ---
changed pt attends. pt has exforated skin on inside of each thigh. pt tolerated well and was able to left hips up and help attends be changed. at bedside. bed low locked positon, side rails up times two call light within reach. will continue to montior for changes.
--- NOTE | 2018-09-27 05:04 | NUR ---
CALLED AND NOTIFIED BETO AT [facility] THAT PT WAS BEING ADMITTED.
[2018-09-27 05:52] VITALS: BP 170/82
--- NOTE | 2018-09-27 05:53 | NUR ---
changed pt attends. pt tolerated well. wiped pt down with baby whip and placed gown on pt. pt stated he would get too hot. sheet left off per pt request. at bedside. bed low locked postion, side rails up times two call light within reach. will continue to monitor for changes.
--- NOTE | 2018-09-27 06:07 | NUR ---
REPORT GIVEN TO YVROSE SINGLETARY ON [employer].
--- NOTE | 2018-09-27 06:35 | NUR ---
RECIEVED TO FLOOR, 4L O2 IN USE VIA NC. GERRI ALARM PUT ON BED, PT HAVING DIFFICULTY BREATHING. SAT HIM UP TO RELIEVE WEIGHT ON HIS CHEST, PT STATES HE IS BREATHING A LITTLE BETTER. WILL CONTINUE TO MONITOR.
[2018-09-27 09:11] VITALS: BP 173/87
[2018-09-27 12:40] VITALS: BP 197/92
[2018-09-27 12:52] VITALS: BMI 36.4
[2018-09-27] MEDS ORDERED: OXYBUTYNIN10 MG/BOTT PO (15:45)
[2018-09-27 16:26] VITALS: BP 209/107
[2018-09-27 20:29] VITALS: BP 183/95
[2018-09-28 00:05] VITALS: BP 160/93
--- NOTE | 2018-09-28 03:09 | NUR ---
PT LYING IN BED RESTING, NO SIGNS OF DISTRESS. CL IN REACH, WILL CONTINUE TO MONITOR
[2018-09-28 04:49] VITALS: BP 153/85
[2018-09-28 05:24] LABS: ALBUMIN 3.1 g/dL (3.4-5.0); ANION GAP 14.8 mmol/L (8-16); BILIRUBIN - TOTAL 0.47 mg/dL (0.2-1.3); CALCIUM 9.3 mg/dL (8.5-10.1); CARBON DIOXIDE 34.8 mmol/L (21.0-32.0); CREATININE - SERUM 1.1 mg/dL (0.6-1.3); POTASSIUM - SERUM 3.6 mmol/L (3.5-5.1); PROTEIN - SERUM 6.6 g/dL (6.4-8.2)
[2018-09-28 05:32] LABS: BASOPHILS 0.1 % (0-2); EOSINOPHILS 0.3 % (0-7); HEMATOCRIT 47.7 % (42.0-54.0); HEMOGLOBIN 15.4 g/dL (13.5-17.5); IMMATURE GRANULOCYTES 0.3 % (0-5); MCH 32.6 pg (26.0-34.0); MCHC 32.3 g/dL (31.0-37.0); MCV 101.1 fL (80.0-100.0); MEAN PLATELET VOLUME 11.6 fL (7.4-10.4); MONOCYTES 9.5 % (2-11); NEUTROPHILS 80.8 % (40-80); PLATELET COUNT 244 10x3/uL (130-400); RBC 4.72 10x6/uL (4.20-6.10); RDW 12.5 % (11.5-14.5)
--- NOTE | 2018-09-28 08:00 | NUR ---
ASSESSMENT PER FLOW SHEET. PT IS LYING IN BED WITH SOME SHORTNESS OF BREATH NOTED. SATS 90-95 ON 7 LTERS PER NASAL CANULA
[2018-09-28 08:49] VITALS: BP 141/77
[2018-09-28 08:54] VITALS: Ht 167.6 cm; Wt 102.3 kg
--- NOTE | 2018-09-28 10:08 | NUR ---
Rehab Prescreening Consult recieved and the chart has been reviewed. He is a [facility] resident and new admission 09/27/18. Currently he is on 7 liters of 02 and has been hypertensive. He also has orders pending. Unsure at this time if he is a candidate for the ARU. Rehab will follow until his workup is complete, he is medically stable and able to participate with therapy. Ama Jaimes RN Clinical Liaison, Rehab
[2018-09-28 11:45] VITALS: BP 143/86
--- NOTE | 2018-09-28 15:12 | NUR ---
OT NOTE: BED MOB WITH MAX ASSIST; SIT TO STAND WITH MOD ASSIST X 2 WITH RW. PT VERY CONFUSED. MOD VC FOR FEEDING AND SET UP OF TRAY. FORTINO ALEX, OTR/L
--- NOTE | 2018-09-28 16:30 | MORECARE ---
CASE MANAGEMENT DISCHARGE SUMMARY PATIENT: JEEVAN JOSEPH UNIT: [id number] ADM DATE: 09/27/18 AGE: 77 : 39 SEX: M ROOM/BED: D.2230 AUTHOR: TONI FAITH PHYSICIAN: REFERRING PHYSICIAN: JAYNE HAGAN MD DATE OF SERVICE: 09/28/18 Discharge Plan Patient Name: JEEVAN JOSEPH [facility] [facility] 1940 Planned Disposition: [facility] Facility w Plan Readm Anticipated Discharge Date: Discharge Date: Expected LOS: Initial Reviewer: [email or web address] Initial Review Date: 09/28/2018 Generated: 09/28/18 5:29 pm DCPIA - Discharge Planning Initial Assessment Updated by [email or web address]: Leila Barber on 09/28/18 4:28 pm * Is the patient Alert and Oriented? No * How many steps to enter\exit or inside your home? 0/0 * PCP [facility] doctor * Pharmacy Care Home * Preadmission Environment Ticket Scheduler Care Home * Facility Name [facility] * ADLs Total Dependent * Equipment Nebulizer Other Oxygen Walker * Other Equipment Power wheelchair * List name and contact numbers for known caregivers / representatives who currently or will assist patient after discharge: Lani Joseph - [facility] - [phone] * Verbal permission to speak to the caregivers and representatives has been obtained from the patient. Yes * Community resources currently utilized None * Additional services required to return to the preadmission environment? No * Can the patient safely return to the preadmission environment? Yes * Has this patient been hospitalized within the prior 30 days at any hospital? No Patient Name: JEEVAN JOSEPH Page [phone] at 1630 All edits/amendments must be made on the electronic document DICTATION DATE: 09/28/181628 WOMEN SPECIALIST: KRISHNA 09/28/181628 RPT#: [id number] DC DATE: STATUS: ADM IN [facility] [address] [place] [address] END OF REPORT
--- NOTE | 2018-09-28 16:38 | MORECARE ---
CASE MANAGEMENT DISCHARGE SUMMARY PATIENT: JEEVAN JOSEPH UNIT: [id number] ADM DATE: 09/27/18 AGE: 77 : 39 SEX: M ROOM/BED: D.2230 AUTHOR: TONI FAITH PHYSICIAN: REFERRING PHYSICIAN: JAYNE HAGAN MD DATE OF SERVICE: 09/28/18 Discharge Plan Patient Name: JEEVAN JOSEPH [facility] : 1940 Planned Disposition: [facility] w Plan Readm Anticipated Discharge Date: Discharge Date: Expected LOS: Initial Reviewer: [email or web address] Initial Review Date: 09/28/2018 Generated: 09/28/18 5:38 pm Comments DCP- Discharge Planning Updated by [email or web address]: Leila Barber on 09/28/18 3:[address] Patient Name: JEEVAN JOSEPH Admission Status: ER Accout number: [id number] Admission Date: 09-27-2018 : 1940 Admission Diagnosis: Attending: JAYNE HAGAN Current LOS: 1 Anticipated DC Date: Planned Disposition: [facility] w Plan Readm Primary Insurance: MEDICARE A & B Discharge Planning Comments: CM met with patient and his to discuss discharge planning. Patient is asleep and the answers all questions. States he lives in adjunct [facility] for medical [facility] care at [facility] and the plan is to return there. She states he is unable to stand, so he will need ambulance transfer. States he is dependent on the nursing staff for his ADL's. I called [facility] and the DON has left for the day. I will call again on Monday. CM will continue to follow and assist with discharge planning/needs. Spray Gun Repairer: Leila Barber DCPIA - Discharge Planning Initial Assessment Updated by [email or web address]: Leila Barber on 09/28/18 4:28 pm * Is the patient Alert and Oriented? No * How many steps to enter\exit or inside your home? 0/0 * PCP longterm doctor * Pharmacy Longterm * Preadmission Environment Group Home Longterm * Facility Name [facility] * ADLs Total Dependent * Equipment Nebulizer Other Oxygen Walker * Other Equipment Power wheelchair * List name and contact numbers for known caregivers / representatives who currently or will assist patient after discharge: Lani Joseph - spouse - [phone] * Verbal permission to speak to the caregivers and representatives has been obtained from the patient. Yes * Community resources currently utilized None * Additional services required to return to the preadmission environment? No * Can the patient safely return to the preadmission environment? Yes * Has this patient been hospitalized within the prior 30 days at any hospital? No Last DP export: 09/28/18 3:30 p Patient Name: JEEVAN JOSEPH Page [phone] at 1638 All edits/amendments must be made on the electronic document DICTATION DATE: 09/28/181637 LINER INSERTER: KRISHNA 09/28/181637 RPT#: [id number] DC DATE: STATUS: ADM IN [facility] [address] [place] [address] END OF REPORT
--- NOTE | 2018-09-28 19:00 | NUR ---
PT AAOX2 WHEN ENTERING THE ROOM. AT BEDSIDE. PT LUNG SOUNDS PRESENT WITH CRACKLES AND RALES "WET" SOUNDING. PT COMPLAINS OF SHORTNESS OF BREATH CURRENTLY ON 7L NC. REQUESTS PAIN MEDICINE WITH HS MEDICATIONS.
[2018-09-28 19:33] VITALS: BP 120/66
--- NOTE | 2018-09-29 03:18 | NUR ---
PT SLEEPING. AROUSES TO VOICE. AT BEDSIDE. DENIES NEEDS AT THIS TIME. WILL CONTINUE POC.
[2018-09-29 04:57] VITALS: BP 127/70
[2018-09-29 06:46] LABS: BASOPHILS 0.1 % (0-2); EOSINOPHILS 0 % (0-7); HEMATOCRIT 44.4 % (42.0-54.0); HEMOGLOBIN 14.4 g/dL (13.5-17.5); IMMATURE GRANULOCYTES 0.4 % (0-5); LYMPHOCYTES 8.4 % (15-50); MCH 32.5 pg (26.0-34.0); MCHC 32.4 g/dL (31.0-37.0); MCV 100.2 fL (80.0-100.0); MEAN PLATELET VOLUME 11.7 fL (7.4-10.4); MONOCYTES 5.6 % (2-11); NEUTROPHILS 85.5 % (40-80); PLATELET COUNT 236 10x3/uL (130-400); RBC 4.43 10x6/uL (4.20-6.10); RDW 12.5 % (11.5-14.5); WBC 12.2 10x3/uL (4.8-10.8)
[2018-09-29 07:12] LABS: ALBUMIN 2.6 g/dL (3.4-5.0); ANION GAP 10.7 mmol/L (8-16); BILIRUBIN - TOTAL 0.3 mg/dL (0.2-1.3); CALCIUM 9.5 mg/dL (8.5-10.1); CARBON DIOXIDE 38.4 mmol/L (21.0-32.0); POTASSIUM - SERUM 3.1 mmol/L (3.5-5.1); PROTEIN - SERUM 6.7 g/dL (6.4-8.2)
[2018-09-29 07:13] LABS: CREATININE - SERUM 1.4 mg/dL (0.6-1.3)
--- NOTE | 2018-09-29 08:13 | NUR ---
EYES CLOSED, EVEN UNLABORED BREATHING, 02 PRESENT VIA NC AT 7LPM, SCDS IN OPERATION AND ON, TELEMETRY, EASILY AROUSED BY VOICE, DENIES ANY NEEDS OR DISCOMFORTS, BED LOWERED AND LOCKED, FAMILY MEMBER PRESENT IN ROOM, CALL LIGHT WITHIN REACH. CPOC
[2018-09-29 09:00] VITALS: BP 124/67
[2018-09-29 10:24] LABS: MAGNESIUM - SERUM 2.2 mg/dL (1.8-2.4); PHOSPHOROUS 4.7 mg/dL (2.5-4.9)
[2018-09-29 12:00] VITALS: BP 130/79
[2018-09-29 16:00] VITALS: BP 100/54
--- NOTE | 2018-09-29 19:15 | NUR ---
PT IN BED RESTING QUIETLY WITH EYES CLOSED. ALERT AND ORIENTED X4. RESPIRATIONS EVEN AND UNLABORED. VS STABLE AND AFEBRILE. NO VISUAL CUES OF DISTRESS NOTED. DENIES ANY OTHER NEEDS AT THIS TIME. BED LOW, SIDE RAILS UP X2. CALL LIGHT IN REACH. WILL CONTINUE TO MONITOR.
--- NOTE | 2018-09-29 19:17 | NUR ---
LAYING IN BED, AWAKE AND ALERT, 02 PRESENT VIA NC AT 7LPM, PRESENT IN ROOM, IV IN RIGHT AC PATENT DENIES ANY DISCOMFORTS OR NEEDS, BED LOWERED AND LOCKED, CALL LIGHT WITHIN REACH. CPOC
[2018-09-29 20:04] VITALS: BP 107/58
[2018-09-30 00:35] VITALS: BP 125/66
[2018-09-30 04:59] VITALS: BP 133/76
[2018-09-30 07:24] LABS: BASOPHILS 0.2 % (0-2); EOSINOPHILS 0 % (0-7); HEMATOCRIT 56.3 % (42.0-54.0); HEMOGLOBIN 18.6 g/dL (13.5-17.5); IMMATURE GRANULOCYTES 0.3 % (0-5); MCH 32.9 pg (26.0-34.0); MCV 99.6 fL (80.0-100.0); MEAN PLATELET VOLUME 11.9 fL (7.4-10.4); MONOCYTES 5.6 % (2-11); NEUTROPHILS 83.9 % (40-80); PLATELET COUNT 164 10x3/uL (130-400); RBC 5.65 10x6/uL (4.20-6.10); RDW 12.5 % (11.5-14.5); WBC 12.3 10x3/uL (4.8-10.8)
[2018-09-30 07:47] LABS: ALBUMIN 2.4 g/dL (3.4-5.0); ANION GAP 10.3 mmol/L (8-16); BILIRUBIN - TOTAL 0.16 mg/dL (0.2-1.3); CARBON DIOXIDE 37.3 mmol/L (21.0-32.0); CREATININE - SERUM 1.6 mg/dL (0.6-1.3); POTASSIUM - SERUM 3.6 mmol/L (3.5-5.1); PROTEIN - SERUM 6.5 g/dL (6.4-8.2)
[2018-09-30 09:00] VITALS: BP 135/70
--- NOTE | 2018-09-30 10:27 | NUR ---
ALERT AND ORIENTED TO SELF AND FAMILIAR FACES. LUNGS CTA BUT DIMINISHED X4. hI-FLOW N/C INFUSING AT 9L/MIN. FALL RISK PRECAUTIONS IN PLACE. SCD INTACT WITH PERIPHERAL PULSED NOTED X4. NO PERIPHERAL EDEMA NOTED. PRENSENT AND ENCOURAGED TO USE CALL LIGHT FOR ASSIST.
[2018-09-30 12:00] VITALS: BP 109/65
[2018-09-30 20:47] VITALS: BP 126/58
[2018-10-01 00:41] VITALS: BP 154/60
--- NOTE | 2018-10-01 01:33 | NUR ---
A/OX4, HOWEVER PT SEEMS TO BE COGNATIVELY SLOW AND HIS SPEACH IS SLURRED AT TIMES. AT BEDSIDE. ASKED FOR SOMTHING FOR SLEEP, BUT WHEN I WENT IN HIS ROOM TO TELL HIM NOTHING WAS ORDERED, HE WAS SLEEPING. DID NOT WAKE. DENIES NEEDS OTHER THAN SLEEP PROBLEMS AND C/O HAVING THE SENSATION OF SOMETHING IN HIS THROAT. PT C/O NOT BEING ABLE TO BREATH, ORIENTED PT TO THE FACT IF HE IS TALKING HE IS BREATHING. WILL CONTINUE POC.
[2018-10-01 07:55] LABS: BASOPHILS 0.1 % (0-2); EOSINOPHILS 0 % (0-7); IMMATURE GRANULOCYTES 0.4 % (0-5); LYMPHOCYTES 5.8 % (15-50); MCH 32.3 pg (26.0-34.0); MCHC 32.5 g/dL (31.0-37.0); MCV 99.3 fL (80.0-100.0); MEAN PLATELET VOLUME 11.5 fL (7.4-10.4); MONOCYTES 2.6 % (2-11); NEUTROPHILS 91.1 % (40-80); RDW 12.2 % (11.5-14.5); WBC 11.7 10x3/uL (4.8-10.8)
[2018-10-01 08:21] LABS: HEMATOCRIT 44.6 % (42.0-54.0); HEMOGLOBIN 14.5 g/dL (13.5-17.5); PLATELET COUNT 300 10x3/uL (130-400); RBC 4.49 10x6/uL (4.20-6.10)
[2018-10-01 08:35] LABS: ALBUMIN 2.4 g/dL (3.4-5.0); ANION GAP 9.2 mmol/L (8-16); BILIRUBIN - TOTAL 0.19 mg/dL (0.2-1.3); CALCIUM 9.5 mg/dL (8.5-10.1); CARBON DIOXIDE 39.2 mmol/L (21.0-32.0); CREATININE - SERUM 1.6 mg/dL (0.6-1.3); POTASSIUM - SERUM 3.4 mmol/L (3.5-5.1); PROTEIN - SERUM 6.4 g/dL (6.4-8.2)
[2018-10-01 09:14] VITALS: BP 121/65
[2018-10-01 12:00] VITALS: BP 110/52
--- NOTE | 2018-10-01 16:36 | NUR ---
DECREASED MOBILITY: RECOMMENDATIONS: ASSIST/REMIND PT TO TURN/REPOSITION Q 2 HOURS WHILE IN BED PERICARE NEEDED DUE TO INCONTINENCE USE CALMOSEPTINE CREAM FOR ANY REDNESS RELATED TO INCONINTENCE
--- NOTE | 2018-10-01 17:27 | NUR ---
OT NOTE: PT COMPLETED BED MOB WITH MICK A. PT COMPLETED UE AROM AXS. THANK YOU, ALEXIS MICHAELS
--- NOTE | 2018-10-01 17:51 | NUR ---
ALERT AND ORIENTED TO SELF AND FAMILIAR FACES. IVF INFUSING AT PRESCRIBED RATE TELEMETRY INTACT WITHOUT ANY CHEST PAIN OR DISCOMFORT. FAILY AT BEDSIDE. RESP. EVEN AND UNLABORED AND CTA. ENCOURAGED PT. AND TO USE CALL LIGHT FOR ASSIST.
--- NOTE | 2018-10-01 18:17 | NUR ---
PATIENT AND NOTIFIED OF PATIENTS LAB BEING RECHECKED IN AM FOR POTASSIUM, VERBALIZED UNDERSTANDING. DENIES ANY C/O WHEN ASKED. C/L WITHIN REACH AND SR'S UP X'S 2, AND BED IN LOWEST POSITION.
[2018-10-01 21:52] VITALS: BP 125/66
--- NOTE | 2018-10-02 01:40 | NUR ---
SLEEPING IN BED FAMILY AT BEDSIDE NO S/S OF DISTRESS
[2018-10-02 04:50] VITALS: BP 134/54
[2018-10-02 05:44] LABS: BASOPHILS 0.1 % (0-2); EOSINOPHILS 0 % (0-7); HEMATOCRIT 43.4 % (42.0-54.0); HEMOGLOBIN 14.7 g/dL (13.5-17.5); IMMATURE GRANULOCYTES 0.4 % (0-5); LYMPHOCYTES 9.1 % (15-50); MCH 32.7 pg (26.0-34.0); MCHC 33.9 g/dL (31.0-37.0); MEAN PLATELET VOLUME 11.4 fL (7.4-10.4); MONOCYTES 8.5 % (2-11); NEUTROPHILS 81.9 % (40-80); PLATELET COUNT 254 10x3/uL (130-400); RBC 4.49 10x6/uL (4.20-6.10); RDW 12.1 % (11.5-14.5); WBC 13.6 10x3/uL (4.8-10.8)
[2018-10-02 06:00] LABS: MCV 96.7 fL (80.0-100.0)
[2018-10-02 06:21] LABS: ALBUMIN 2.2 g/dL (3.4-5.0); ANION GAP 5.9 mmol/L (8-16); BILIRUBIN - TOTAL 0.16 mg/dL (0.2-1.3); CALCIUM 9.2 mg/dL (8.5-10.1); CARBON DIOXIDE 39.6 mmol/L (21.0-32.0); CREATININE - SERUM 1.6 mg/dL (0.6-1.3); POTASSIUM - SERUM 3.5 mmol/L (3.5-5.1); PROTEIN - SERUM 5.9 g/dL (6.4-8.2)
--- NOTE | 2018-10-02 08:30 | NUR ---
PT AOX1 SELF AT THIS TIME PT DENIES NEEDS AT THIS TIME SRX2 BED AT LOWEST SETTING CALL LIGHT WITHIN REACH WILL CONTINUE TO MONITOR WILL CONTINUE TO MONITOR
[2018-10-02 08:33] VITALS: BP 139/74
--- NOTE | 2018-10-02 11:51 | NUR ---
OT NOTE: PT RESISTANT ON GETTING UP INTO CHAIR BUT FINALLY ENCOURAGED EXPLAINING THE IMPORTANCE OF SITTING UP FOR STRENGTH AND LUNG FUNCTION. SUPINE TO SIT WITH MOD ASSIST; STATIC SITTING ON EDGE OF BED WITH CGA; REQUIRED 3 ATTEMPTS IN ORDER TO TRANSFER TO CHAIR (MAX ASSIST) WITH USE OF RW. PERFORMED FEEDING WITH SET UP AND VC; MIN ASSIST WITH SIMPLE GROOMING; MAX ASSIST WITH DOFFING AND DONNING SOCKS AND GOWN. PT AGREEABLE TO SIT UP IN CHAIR THROUGH LUNCH. AT BEDSIDE. FORTINO ALEX, OTR/L
[2018-10-02 13:35] VITALS: BP 98/56
--- NOTE | 2018-10-02 15:01 | EC ---
PATIENT:JEEVAN JOSEPH DATE OF SERVICE: 09/27/18 SEX: M MEDICAL RECORD: [id number] DATE OF : 38 LOCATION:D.MS Louis AGE OF PATIENT: 77 ADMISSION DATE: 09/27/18 REFERRING PHYSICIAN: INTERPRETING PHYSICIAN: ALICIA GATICA MD ECHOCARDIOGRAM REPORT ECHO CHARGES 4 ECHO COMPLETE Date: 09/28/18 CLINICAL DIAGNOSIS: CHF ECHOCARDIOGRAPHIC MEASUREMENTS (adult normal given) AC root (d.<3.7cm) 4.0 cm LV Septum d (<1.2 cm> 1.6 cm Valve Excursion 2.4 cm LV Septum (systole) 2.3 cm Left Atria (s.<4.0cm> 3.8 cm LVPW d(<1.2cm) 1.8 cm RV (d.<2.3cm) 2.3 cm LVPW (sytole) 2.1 cm LV diastole(<5.6CM) 4.9 cm MV E-F(>70mm/sec) cm LV systole 3.2 cm LVOT Diameter 2.0 cm MV exc.(>10mm) cm Est.ejection fraction (50-75%) % DOPPLER: LVIT cm/sec A 127 cm/sec E 52.0 cm/sec LA cm/sec RVSP mmHg LVOT 143 cm/sec AOP1/2T m/s Asc. Ao 140 cm/sec RVOT 115 cm/sec RA cm/sec PA 121 cm/sec AV Gradient Peak 7.8 mmHg AV Mean 3.9 mmHg AV Area 2.9 cm MV Gradient Peak 4.4 mmHg MV Mean 1.6 mmHg MV Area cm COMMENTS: Bituminous Distributor Operator: 1 MALU RENDONOE Vocational Counselor: 3 Dr. Bose TAPE# PACS Pericardial Effusion Y DATE OF SERVICE: 09/29/2018 Adequate 2D echo, color flow and spectral Doppler, and M-mode. LVH is present. LV internal dimensions are normal. LV function appears to be mildly reduced. Overall LV function estimated at 40% to 45%. Aortic valve sclerosis is without stenosis by Doppler interrogation. Left atrium is normal at 3.8 cm. Mitral valve shows no prolapse. Trace MR. Right-sided chamber is grossly normal. Mild TR. ECHOCARDIOGRAM REPORT [id number] JEEVAN JOSEPH TRANSINT:[id number] Voice Confirmation ID: [id number] DOCUMENT ID: [id number] ALICIA GATICA MD at 1501 CC: [id number] DICTATION DATE: 09/29/18 1149 PEN TESTER: 09/29/18 1330 ADM IN [facility] [address] [place] [id number]
--- NOTE | 2018-10-02 20:00 | NUR ---
AWAKE,ALERT.NO COMPLAINTS VOICED. SKIN WARMD DRY. RESP EVEN AND UNALBORED. NO DISTRESS NOTED. O2 @2L PER NC ON. SL TO RIGHT THUMB INTACT WITHOUT REDNESS OR EDEMA NOTHED.SCD ON. GERRI KEIRA ON. AT BEDSIDE. CL IN REACH
--- NOTE | 2018-10-02 21:13 | NUR ---
FSBS 421. GIVEN 20 UNITS PER SS. RODNEY BETANCOURT NOTIFIED.
[2018-10-02 21:50] VITALS: BP 134/71
--- NOTE | 2018-10-03 03:30 | NUR ---
RESTIN IN BED RESP UNLABORED NO APPARENT DISTRESS CALL LIGHT IN REACH
[2018-10-03 05:09] LABS: BASOPHILS 0.1 % (0-2); EOSINOPHILS 0 % (0-7); HEMATOCRIT 44.2 % (42.0-54.0); HEMOGLOBIN 14.5 g/dL (13.5-17.5); IMMATURE GRANULOCYTES 0.6 % (0-5); LYMPHOCYTES 7.2 % (15-50); MCHC 32.8 g/dL (31.0-37.0); MCV 97.6 fL (80.0-100.0); MEAN PLATELET VOLUME 11.5 fL (7.4-10.4); MONOCYTES 4.7 % (2-11); NEUTROPHILS 87.4 % (40-80); PLATELET COUNT 261 10x3/uL (130-400); RBC 4.53 10x6/uL (4.20-6.10); RDW 12.3 % (11.5-14.5); WBC 11.3 10x3/uL (4.8-10.8)
[2018-10-03 05:20] LABS: ANION GAP 8.4 mmol/L (8-16); CALCIUM 9.2 mg/dL (8.5-10.1); CARBON DIOXIDE 38.4 mmol/L (21.0-32.0); CREATININE - SERUM 1.5 mg/dL (0.6-1.3); POTASSIUM - SERUM 3.8 mmol/L (3.5-5.1)
[2018-10-03 05:26] VITALS: BP 124/74
[2018-10-03 08:49] VITALS: BP 122/59
[2018-10-03 09:41] LABS: APPEARANCE CLEAR (CLEAR); BILIRUBIN NEGATIVE (NEGATIVE); COLOR YELLOW (YELLOW); GLUCOSE NEGATIVE (NEGATIVE); KETONE NEGATIVE (NEGATIVE); NITRITE NEGATIVE (NEGATIVE); PROTEIN NEGATIVE (NEGATIVE); SPECIFIC GRAVITY 1.015 (1.005-1.020); UROBILINOGEN NORMAL (NORMAL)
--- NOTE | 2018-10-03 11:28 | NUR ---
OT NOTE: BED MOB WITH MOD ASSIST; SIT TO STAND WITH MOD ASSIST X 2 X 3 TRIALS; ASSIST WITH URINAL USAGE; ABLE TO HOLD DRINK WITHOUT ASSIST; STANDING IMPROVED FROM YESTERDAY. FORTINO ALEX, OTR/L
[2018-10-03 12:48] VITALS: BP 130/59
--- NOTE | 2018-10-03 13:02 | NUR ---
NUTRITION F/U CHART REVIEWED, PT VISIT. EATING LUNCH, GOOD INTAKE RECENT MEALS. WILL CONTINUE TO PROVIDE DIET, MONITOR INTAKE. RD FOLLOWING
--- NOTE | 2018-10-03 16:42 | CN ---
PATIENT NAME:JEEVAN JOSEPH MEDICAL RECORD: [id number] : 38 LOCATION:D.MS Rothman2230 ADMIT DATE: 09/27/18 ACCOUNT: [id number] CONSULTING PHYSICIAN: CARLOS FULLER MD REFERRING PHYSICIAN: JAYNE HAGAN MD DATE OF CONSULTATION: 09/28/2018 CONSULT REQUESTING PHYSICIAN: Eunice Larson MD REASON FOR CONSULTATION: Pneumonia, acute exacerbation of chronic obstructive pulmonary disease. HISTORY OF PRESENT ILLNESS: Mr. Joseph is a 77-year-old gentleman, very well known to our service. The patient was brought in from the alf with worsening shortness of breath. Workup showed the patient has pneumonia as well as pulmonary edema and CHF. The patient denies any fever or chill, no night sweats. Denies any aspiration. REVIEW OF SYSTEMS: As in history of present illness. PAST MEDICAL HISTORY: 1. Chronic hypoxic respiratory failure. 2. Chronic obstructive pulmonary disease. 3. Emphysema. 4. Coronary artery disease. 5. Hypertension. 6. Diabetes mellitus. 7. Neuropathy. 8. Anxiety, depression. 9. Generalized weakness. ALLERGIES: HE IS ALLERGIC TO PENICILLIN. MEDICATIONS: On Meditech is reviewed. PAST SURGICAL HISTORY: 1. Back surgery. 2. He has a history of craniotomy. 3. Prostatectomy. 4. Left leg surgery. 5. Cardiac catheterization and stent placement. ALLERGIES: ALLERGIC TO PENICILLIN. MEDICATIONS: Meditech is reviewed. PERSONAL AND SOCIAL HISTORY: The patient is . He is now a alf resident. FAMILY HISTORY: Significant for cardiovascular disease. PHYSICAL EXAMINATION: GENERAL: Now, the patient is lying comfortably. He is not in acute distress. VITAL SIGNS: The blood pressure is 143/86, pulse is 95, respiration is 21, temperature 98.2, SPO2 is 92% on 7 liters nasal cannula. CONSULT REPORT [id number] JEEVAN JOSEPH HEENT: Conjunctivae are pink. Sclerae are not icteric. NECK: Supple, no JVD. CHEST: The chest excursion minimal, but there are crackles, right lower lobe. OTHER LABORATORY DATA: CBC: WBC is 15,000, hemoglobin is 15.4, hematocrit is 47.7, the platelet count is 244. Chemistry: Sodium 145, potassium 3.6, BUN is 24, creatinine is 1.1. IMPRESSION: 1. Mazwo-vk-hntnmtp hypoxic respiratory failure. 2. Pneumonia, right lower lobe. 3. Acute exacerbation of chronic obstructive pulmonary disease. 4. Dyspnea. 5. Leukocytosis. 6. Congestive heart failure with chronic diastolic dysfunction. RECOMMENDATION: 1. We will continue supplemental oxygen. 2. Lasix IV. 3. Discontinue Zithromax, start on Levaquin IV, Rocephin IV. 4. Brovana, budesonide nebulizer. 5. Methylprednisolone IV. 6. Albuterol ipratropium nebulizer. 7. Follow up labs and chest radiograph. 8. DVT prophylaxis. 9. We will follow up on the cardiac echo. Dr. Larson, thank you for involving me in the care of Mr. Joseph. TRANSINT:[id number] Voice Confirmation ID: [id number] DOCUMENT ID: [id number] CARLOS FULLER MD at 1642 CC: [id number] DICTATION DATE: 09/28/181824 GAS LEAK TESTER: 09/29/18 0116 ADM IN [place] [address] [place] [id number]
[2018-10-03 16:48] VITALS: BP 127/69
--- NOTE | 2018-10-03 17:37 | NUR ---
OT NOTE: PT COMPLETED HYGIENE TASKS WITH MIN A. PT COMPLETED BED MOB WITH MIN/MOD A. THANK YOU, ALEXIS MICHAELS
[2018-10-03 21:23] VITALS: BP 119/52
[2018-10-04] VITALS (7 sets, daily range): BP systolic 98–129; BP diastolic 57–69
--- NOTE | 2018-10-04 03:45 | NUR ---
PERIODS OF CONFUSION. CALLS OUT THE ROOM FOR HELP. RE-ORIENTED PT THAT WE DO NOT YELL OUT THE ROOM. REASURED ASBESTOS WORKER WAS EN ROUTE WITH MEDS. BREATHING SHALLOW. DENIES OTHER NEEDS. AT BEDSIDE. WILL CONTINUE POC.
[2018-10-04 06:20] LABS: BASOPHILS 0.1 % (0-2); EOSINOPHILS 0.3 % (0-7); HEMATOCRIT 46.7 % (42.0-54.0); HEMOGLOBIN 15.5 g/dL (13.5-17.5); IMMATURE GRANULOCYTES 0.6 % (0-5); LYMPHOCYTES 23.6 % (15-50); MCH 32.4 pg (26.0-34.0); MCHC 33.2 g/dL (31.0-37.0); MCV 97.5 fL (80.0-100.0); MEAN PLATELET VOLUME 11.8 fL (7.4-10.4); MONOCYTES 7.8 % (2-11); NEUTROPHILS 67.6 % (40-80); PLATELET COUNT 240 10x3/uL (130-400); RBC 4.79 10x6/uL (4.20-6.10); RDW 12.3 % (11.5-14.5); WBC 12.6 10x3/uL (4.8-10.8)
[2018-10-04 06:47] LABS: ANION GAP 7.5 mmol/L (8-16); CALCIUM 9.6 mg/dL (8.5-10.1); CARBON DIOXIDE 39.2 mmol/L (21.0-32.0); CREATININE - SERUM 1.4 mg/dL (0.6-1.3); POTASSIUM - SERUM 3.7 mmol/L (3.5-5.1)
--- NOTE | 2018-10-04 07:45 | NUR ---
PT RESTING IN BED, EYES OPEN. NO C/O PAIN. NO S/S OF ACUTE DISTRESS NOTED. PT ON ELECTROLYTE PROTOCOL. PT ACHS FSBS. PT ON 6L O2, NC. IV TO RIGHT THUMB, SITE PATENT WITHOUT REDNESS OR SWELLING, SL. PT ON TELEMETRY 62 BBB. AT BEDSIDE. PT DENIES ANYTHING FURTHER AT THIS TIME. CALL LIGHT IN REACH. WILL CONTINUE TO MONITOR.
--- NOTE | 2018-10-04 12:30 | NUR ---
PT FSBS 425, GAVE 20 UNITS OF INSULIN. NOTIFIED EDWARDO BATEMAN. PT C/O GENERALIZED PAIN. NOTIFIED COMPENSATION SUPERVISOR ALSO. NO S/S OF DISTRESS NOTED. AT BEDISDE. FALL PRECAUTIONS IN PLACE. CALL LIGHT IN REACH. WILL CONTINUE TO MONITOR.
--- NOTE | 2018-10-04 14:44 | NUR ---
OT NOTE: PERFORMED BED MOB IN AM; SIMPLE GROOMING WITH MIN ASSIST; FEEDING A FEW BITES WITHOUT ASSIST; TRANSFER WITH MAX ASSIST AND USE OF RW; PT SEEN IN PM; TRANSFERRED BACK TO BED WITH RW AND MAX ASSIST; STATIC SITTING WITH GOOD BALANCE; ABLE TO GET FEET IN BED WITHOUT ASSIST; DONNED/DOFFED GOWN WITH MIN ASSIST. FORTINO ALEX, OTR/L
--- NOTE | 2018-10-04 17:03 | NUR ---
OT NOTE: PT COMPLETED UE AROM. PT COMPLETED BED MOB WITH MIN/MOD. PT COMPLETED FACE WASHING WITH MIN A. THANK YOU, ALEXIS MICHAELS
--- NOTE | 2018-10-04 18:00 | NUR ---
ALERT AND ORIENTED X4. 5 L PER NC. TELEMETRY SINUS SRINIVASAN. RIGHT FOREARM PATENT AND SALINE LOCKED. FAMILY IS AT BEDSIDE. FALL PERCAUTIONS MAINTAINED. BED LOW CALL LIGHT IN REACH AND PATIENT DENIES ANY NEEDS AT THIS TIME
--- NOTE | 2018-10-04 18:40 | NUR ---
PT RESTING IN BED, EYES OPEN. NO C/O PAIN. NO S/S OF DISTRESS NOTED. AT BEDSIDE. PT DENIES ANYTHING FURTHER AT THIS TIME. CALL LIGHT IN REACH. FALL PRECAUTIONS IN PLACE. WILL CONTINUE TO MONITOR.
--- NOTE | 2018-10-05 00:10 | NUR ---
A/OX4. AT BEDSIDE. BREATHING EVEN AND SHALLOW. DENIES NEEDS. WILL CONTINUE POC.
--- NOTE | 2018-10-05 01:32 | NUR ---
[facility] CALLED TO GET UPDATE. TOLD THEM THAT OUR GOAL IS TO WEEN PT TO 5L O2 AND SPO2% >90% BEFORE PT IS D/DOREEN. WILL CONTINUE POC.
--- NOTE | 2018-10-05 02:15 | NUR ---
ANSWERED CALL LIGHT. URINATED ON SELF. COMPLETE BED CHANGE. WILL CONTINUE POC.
[2018-10-05 04:05] VITALS: BP 115/80
--- NOTE | 2018-10-05 04:10 | NUR ---
PT SLEEPING. BREATHING EVEN AND SHALLOW. AT BEDSIDE. WILL CONTINUE POC.
[2018-10-05 05:39] LABS: BASOPHILS 0.1 % (0-2); EOSINOPHILS 0 % (0-7); HEMATOCRIT 46.2 % (42.0-54.0); HEMOGLOBIN 15.7 g/dL (13.5-17.5); IMMATURE GRANULOCYTES 0.8 % (0-5); LYMPHOCYTES 6.7 % (15-50); MCH 33.1 pg (26.0-34.0); MCV 97.3 fL (80.0-100.0); MEAN PLATELET VOLUME 11.5 fL (7.4-10.4); MONOCYTES 3.1 % (2-11); NEUTROPHILS 89.3 % (40-80); PLATELET COUNT 258 10x3/uL (130-400); RBC 4.75 10x6/uL (4.20-6.10); RDW 12.2 % (11.5-14.5); WBC 13.2 10x3/uL (4.8-10.8)
[2018-10-05 05:58] LABS: ANION GAP 8.7 mmol/L (8-16); CARBON DIOXIDE 38.8 mmol/L (21.0-32.0); CREATININE - SERUM 1.5 mg/dL (0.6-1.3)
[2018-10-05 06:00] LABS: POTASSIUM - SERUM 4.5 mmol/L (3.5-5.1)
--- NOTE | 2018-10-05 08:00 | NUR ---
PT LAYING IN BED RESTING THIS AM, AT BEDSIDE. PT AWOKEN EASILY TO VERBAL STIMULI. MOOD PLEASANT, VOICES THAT HE IS BREATHING WELL, RESPIRATIONS EVEN AND UNLABORED, NO S/S OF DISTRESS NOTED. O2 @ 5L VIA HFNC. IV SALINE LOCKED TO RIGHT HAND. DENIES NEEDS AT THIS TIME. BED LOW AND LOCKED, SR UP X2 ,CL IN EASY REACH. WILL CONTINUE TO MONITOR.
[2018-10-05 08:51] VITALS: BP 119/93
[2018-10-05 13:37] VITALS: BP 95/51
--- NOTE | 2018-10-05 17:17 | NUR ---
LAYING IN BED RESTING WITH EYES CLOSED, FAMILY MEMBER AT BEDSIDE. DENIES NEEDS. CL IN EASY REACH.
[2018-10-05 17:45] VITALS: BP 113/57
--- NOTE | 2018-10-05 19:00 | NUR ---
PT ALERT AND ORIENTED WHEN ENTERING THE ROOM. SALINE LOCKED IV TO THE RIGHT HAND. PT WEARING NC WITH 5L O2. AT BEDSIDE. ABDOMEN DISTENDED WITH ACTIVE BOWEL SOUNDS. PT LUNGS PRESENT WITH DIMINSHED BILATERAL LOBES. PT WEARING SCD'S. PT REQUESTS PRN "MEDS THAT MAKE ME SLEEP". CALL LIGHT IN REACH.
[2018-10-05 20:00] VITALS: BP 118/58
[2018-10-06] VITALS: BP 140/75
[2018-10-06 03:00] VITALS: BP 135/58
--- NOTE | 2018-10-06 03:40 | NUR ---
PT LYING IN BED RESTING, NO SIGNS OF DISTRESS. DENIES NEEDS, CL IN REACH. WILL CONTINUE TO MONITOR
[2018-10-06 05:21] LABS: BASOPHILS 0.2 % (0-2); EOSINOPHILS 0.4 % (0-7); HEMATOCRIT 45.7 % (42.0-54.0); HEMOGLOBIN 15.5 g/dL (13.5-17.5); LYMPHOCYTES 26.4 % (15-50); MCH 32.5 pg (26.0-34.0); MCHC 33.9 g/dL (31.0-37.0); MCV 95.8 fL (80.0-100.0); MEAN PLATELET VOLUME 12.3 fL (7.4-10.4); MONOCYTES 7.1 % (2-11); NEUTROPHILS 64.9 % (40-80); RBC 4.77 10x6/uL (4.20-6.10); WBC 13.3 10x3/uL (4.8-10.8)
[2018-10-06 05:26] LABS: PLATELET COUNT 123 10x3/uL (130-400)
[2018-10-06 05:56] LABS: ANION GAP 5.9 mmol/L (8-16); CALCIUM 9.1 mg/dL (8.5-10.1); CARBON DIOXIDE 38.8 mmol/L (21.0-32.0); CREATININE - SERUM 1.2 mg/dL (0.6-1.3); POTASSIUM - SERUM 4.7 mmol/L (3.5-5.1)
[2018-10-06 08:57] VITALS: BP 120/71
--- NOTE | 2018-10-06 11:11 | NUR ---
PT O2 SAT RESTING AT 85% ON 5L, RT INFORMED, TURNED HIM UP TO 7L AND IT MOVED HIS SATS UP TO 87%. PT'S CHEST AUSCULTATED, SOUNDS VERY CONGESTED. RT TURNED HIM UP TO 10L VIA HFNC. PT NOW RESTING AT 91% O2 SAT VIA 10L OF O2. IRINA BROOKE NOTIFIED, CHEST X-RAY ORDERED. CL IN EASY REACH. WILL CONTINUE TO MONITOR.
--- NOTE | 2018-10-06 11:53 | NUR ---
OT NOTE: BED MOB WITH MOD ASSIST; INDEP WITH SITTING BALANCE ON EDGE OF BED; PT STATED THAT HE FELT LIKE HE NEEDED TO HAVE BM SO BS COMMODE WAS PROVIDED; MAX ASSIST WITH TRANSFER FROM BED TO BS COMMODE; PT STAYED ON COMMODE FOR A WHILE BUT WAS UNABLE TO DO ANYTHING. TRANSFERRED FROM THERE TO THE CHAIR WITH MAX ASSIST; GROOMING TASKS WITH SET UP EXCLUDING COMBING HAIR WHERE HE REQUIRED MOD ASSIST. AROM EXS WITH B UES. FORTINO ALEX, OTR/L
[2018-10-06 12:14] VITALS: BP 89/53
[2018-10-06 12:55] VITALS: BP 79/43
--- NOTE | 2018-10-06 13:51 | NUR ---
OT NOTE: ASSISTED PT WITH TRANSFER FROM CHAIR TO BED; PT VERY WEAK; REQUIRED MAX X 2 AND USE OF RW, PT HAD TO BE PLACED BACK ON TO BED. GAVE OUT MID WAY DURING TRANSFER. FORTINO ALEX, OTR/L
--- NOTE | 2018-10-06 16:00 | NUR ---
AT BEDSIDE WTH INCONTINENCE AT TIMES. TELEMETRY SR 63. DENIES ANY CHEST DISCOMFORT. LUNGS CTA. ENCOURAGED TO USE CALL LIGHT FOR ASSIST AND VERBALIZED UNDERSTANDING
--- NOTE | 2018-10-06 16:57 | NUR ---
PT RESTING IN BED, WARM TOWEL OVER FOREHEAD. PT STATED THAT HE HASN'T HAD A BOWEL MOVEMENT IN 3 DAYS. DISCUSSED WITH IRINA BROOKE. DENIES FURTHER NEEDS. CL IN EASY REACH. PRODUCTIVE COUGH NOTICED, YELLOW FROTHY SPUTUM.
--- NOTE | 2018-10-06 19:00 | NUR ---
PT ALERT AND ORIENTED WHEN ENTERING THE ROOM. LIGHTS OFF AND APPEARS THAT PT AND ARE ATTEMPTING TO GO TO BED. ASKED PT HOW HIS PAIN WAS. STATES NO PAIN. PT STATED THAT HE NEEDED MORE OXYGEN. CONTINUOUS PULSE OX READS PT IS SATING AT 92% ON 7L. SPOKE WITH PT ABOUT DOCTORS ORDERS AND PT STATES UNDERSTANDING. INSTRUCTED PT ON DEEP BREATHING IN THROUGH NOSE AND OUT THROUGH MOUTH. PT SATS INCREASED TO 94%. PT REQUESTS "SLEEP MEDS". RIGHT HAND IV IS SALINE LOCKED. 7 L NC. CONTINUOUS IN ROOM V/S. CALL LIGHT IN REACH.
--- NOTE | 2018-10-06 19:31 | NUR ---
PT LAYING IN BED RESTING WITH EYES CLOSED, AT BEDSIDE. DENIES NEEDS AT THIS TIME. CL IN EASY REACH.
[2018-10-06 20:00] VITALS: BP 107/61
[2018-10-07] VITALS: BP 115/56
--- NOTE | 2018-10-07 00:54 | NUR ---
PT LYING IN BED RESTING, NO SIGNS OF DISTRESS. AT BEDSIDE. CL IN REACH, WILL CONTINUE TO MONITOR
[2018-10-07 03:00] VITALS: BP 110/49
--- NOTE | 2018-10-07 03:02 | NUR ---
SEVERAL BOWEL MOVEMENTS THROUGH OUT THE NIGHT. PT USES CALL LIGHT AND UNDERSTANDS TO NOTIFY STAFF WHEN BM OCCURS. PT REFUSES BED DURHAM.
[2018-10-07 05:04] LABS: BASOPHILS 0.1 % (0-2); EOSINOPHILS 0.4 % (0-7); HEMATOCRIT 46.1 % (42.0-54.0); HEMOGLOBIN 15.4 g/dL (13.5-17.5); IMMATURE GRANULOCYTES 0.9 % (0-5); LYMPHOCYTES 22.8 % (15-50); MCH 32.2 pg (26.0-34.0); MCHC 33.4 g/dL (31.0-37.0); MCV 96.4 fL (80.0-100.0); MEAN PLATELET VOLUME 11.4 fL (7.4-10.4); MONOCYTES 6.5 % (2-11); NEUTROPHILS 69.3 % (40-80); RBC 4.78 10x6/uL (4.20-6.10); RDW 12.2 % (11.5-14.5)
[2018-10-07 05:06] LABS: PLATELET COUNT 239 10x3/uL (130-400)
[2018-10-07 05:15] LABS: ANION GAP 4.8 mmol/L (8-16); CALCIUM 8.9 mg/dL (8.5-10.1)
[2018-10-07 05:32] LABS: CREATININE - SERUM 1.6 mg/dL (0.6-1.3); POTASSIUM - SERUM 3.8 mmol/L (3.5-5.1)
--- NOTE | 2018-10-07 08:02 | NUR ---
02 WAS AT 87% WITH 10LPN VIA HIGH FLOW NC, SHALLOW BREATHING, EVEN, LUNG SOUNDS IN ALL MICHELE HAVE EXIPRATORY WHEEZING WITH COARSE CRACKLES. RESPIRATORY CONSULTED. WILL MONITOR AND DISCUSS TREATMENT OPTIONS WHEN THEY ARRIVE TO UNIT. ELEVATED HOB TO 45 DEGREES, INCREASED 02 FLOW TO 12. BED LOWERED AND LOCKED, FAMILY MEMBER PRESENT, CALL LIGHT WITHIN REACH. CPOC
--- NOTE | 2018-10-07 08:38 | NUR ---
RESPIRTORY EVAULATED AND STATED, "ISN'T TAKING ENOUGH BREATHS IN TO KEEP HIS O2 ELEVATED" HE HAS A HX OF YADIRA, AND USE OF BIPAP, FAMILY MEMBER STATED HE WILL NOT WEAR A BIPAP UNLESS HIS ENTIRE FACE IS COVERED. RT TURNED 02 TO 14LPM VIA HIGH FLOW. 02 SATS TREND DOWN WHEN PT IS RESTING. WILL CONTINUE TO MONITOR. DENIES ANY NEEDS OR DISCOMFORTS, BED LOWERED AND LOCKED, CALL LIGHT WITHIN REACH. CPOC
[2018-10-07 09:21] VITALS: BP 112/66
--- NOTE | 2018-10-07 14:06 | NUR ---
RESTING QUIETLY IN BED. AT BEDSIDE. DISCUSSED USE OF BIPAP WITH PATIENT AND HE IS ADAMANT THAT HE CANT STAND IT. DENIES NEEDS. 02 SAT 91 AT 12LNC.
[2018-10-07 16:56] VITALS: BP 105/55
[2018-10-07 19:00] VITALS: BP 92/56
[2018-10-08] VITALS: BP 129/68
--- NOTE | 2018-10-08 02:27 | NUR ---
RESTING QUITLY WITH NO DISTRESS NOTED.
--- NOTE | 2018-10-08 02:45 | NUR ---
RESTING QUITELY IN BED RESP UNLABORED NO APPARENT DISTRESS CALL LIGHT IN REACH
[2018-10-08 03:00] VITALS: BP 146/76
--- NOTE | 2018-10-08 06:20 | NUR ---
SPOKE WITH PHARMACIST GAVE OK TO GIVE MAXIPIME. ALLERGY TO PCN IS A RASH AND NON-ANAPHALACTIC.
[2018-10-08 06:37] LABS: BASOPHILS 0.1 % (0-2); EOSINOPHILS 0.1 % (0-7); HEMATOCRIT 43.1 % (42.0-54.0); HEMOGLOBIN 14.5 g/dL (13.5-17.5); IMMATURE GRANULOCYTES 0.3 % (0-5); LYMPHOCYTES 7.7 % (15-50); MCH 32.4 pg (26.0-34.0); MCHC 33.6 g/dL (31.0-37.0); MCV 96.4 fL (80.0-100.0); MEAN PLATELET VOLUME 11.3 fL (7.4-10.4); MONOCYTES 5.8 % (2-11); PLATELET COUNT 213 10x3/uL (130-400); RBC 4.47 10x6/uL (4.20-6.10); RDW 12.1 % (11.5-14.5); WBC 15.2 10x3/uL (4.8-10.8)
[2018-10-08 07:16] LABS: ANION GAP 8.7 mmol/L (8-16); CALCIUM 8.7 mg/dL (8.5-10.1); CARBON DIOXIDE 35.4 mmol/L (21.0-32.0); CREATININE - SERUM 1.3 mg/dL (0.6-1.3); POTASSIUM - SERUM 4.1 mmol/L (3.5-5.1)
[2018-10-08 08:25] VITALS: BP 131/50
[2018-10-08 12:26] VITALS: BP 98/57
--- NOTE | 2018-10-08 15:19 | NUR ---
ALERT AND ORIENTED RECEIVES HI-FLOW O2 AT 14 LITERS. IVF INFUSING TO RT WRIST AT PRESCRIBED RATE. TELEMETRY INTACT. PRESENT IN ROOM AND ENCOURAGED TO USE CALL LIGHT FOR ASSSIT.VERBALIZED UNDERSTANDING.
--- NOTE | 2018-10-08 16:59 | NUR ---
OT NOTE: PT REQUIRED MUCH ENCOURAGEMENT TO GET UP OUT OF BED TODAY; MOD ASSIST FOR SUPINE TO SIT; AROM EXS ON EDGE OF BED WITH CONSTANT CUES TO CONTINUE; TRANSFER FROM BED TO CHAIR WITH MOD ASSIST X 2 AND USE OF RW; GROOMING TASKS WHILE UP IN CHAIR. PT TOLERATED SITTING UP FOR APPROX 2 HRS. IN AFTERNOON, PT ABLE TO STAND FOR APPROX 1-2 MIN WHILE BEING CLEANED. CONTINUES WITH DIARRHEA; MOD ASSIST FOR TRANSFER BACK INTO BED; REPOSITIONED IN BED. FORTINO ALEX, OTR/L
[2018-10-08 17:23] VITALS: BP 114/67
[2018-10-08 20:31] VITALS: BP 122/69
--- NOTE | 2018-10-08 21:30 | NUR ---
A/OX4. BREATHING EVEN AND LABORED. ON HIGH FLOW O2. AT BEDSIDE. PT C/O NECK/BACK PAIN. GAVE PN MEDS. DENIES OTHER NEEDS. WILL CONTINUE POC.
[2018-10-09 04:47] VITALS: BP 154/60
[2018-10-09 05:36] LABS: BASOPHILS 0 % (0-2); EOSINOPHILS 0.3 % (0-7); HEMOGLOBIN 14.1 g/dL (13.5-17.5); IMMATURE GRANULOCYTES 0.3 % (0-5); LYMPHOCYTES 5.3 % (15-50); MCH 31.8 pg (26.0-34.0); MCHC 33.6 g/dL (31.0-37.0); MCV 94.8 fL (80.0-100.0); MEAN PLATELET VOLUME 11.6 fL (7.4-10.4); NEUTROPHILS 90.1 % (40-80); PLATELET COUNT 184 10x3/uL (130-400); RBC 4.43 10x6/uL (4.20-6.10); RDW 12.2 % (11.5-14.5); WBC 13.2 10x3/uL (4.8-10.8)
[2018-10-09 05:56] LABS: CALC OSMOLALITY 302 mosm/kg (275-300); CALCIUM 8.8 mg/dL (8.5-10.1); CHLORIDE - SERUM 102 mmol/L (98-107); GLUCOSE 152 mg/dL (74-106); POTASSIUM - SERUM 4.6 mmol/L (3.5-5.1); SODIUM 140 mmol/L (136-145); UREA NITROGEN 70 mg/dL (7-18); eGFR NON AFRICAN AMERICAN 77 mL/min (90-120)
--- NOTE | 2018-10-09 08:25 | NUR ---
PT SITTING UP IN BED EATING BREAKFAST. NO ACUTE DISTRESS NOTED. O2 SATS 92% WITH O2 @ 12L HI JORGE NC. IV TO RIGHT HAND WITH NS @ 10ML/HR INFUSING VIA PUMP SITE WITHOUT REDNESS OR EDEMA. REPORTS PAIN 7/10 IN BACK AREA. PAIN MEDS ADMINISTERED PER ORDERS. DENIES FURTHER NEEDS AT THIS TIME. CL WITHIN REACH. SPOUSE AT BEDSIDE. ENCOURAGED TO CALL WITH NEEDS. CONTINUE POC
[2018-10-09 08:59] VITALS: BP 116/58
--- NOTE | 2018-10-09 09:15 | NUR ---
PT SITTING UP IN CHAIR AT BEDSIDE NO ACUTE DISTRESS NOTED AT THIS TIME. CL WITHIN REACH. TIGRE WELL SITTING UP AT BEDSIDE. WILL CONTINUE TO MONITOR.
--- NOTE | 2018-10-09 12:00 | NUR ---
OT NOTE: PT AGAIN RESISTIVE TO GETTING UP OUT OF BED. 02 HAD BEEN INCREASED TO 10L. CHECKED WITH NURSING TO MAKE SURE HE WAS OK TO GET UP. MIN ASSIST WITH BED MOB; MOD ASSIST WITH USE OF WALKER TO TRANSFER TO CHAIR; SIMPLE GROOMING WITH MIN ASSIST. FORTINO ALEX, OTR/L
[2018-10-09 12:16] VITALS: BP 119/64
--- NOTE | 2018-10-09 12:32 | NUR ---
NUTRITION F/U CHART REVIEWED. PT TOLERATING [facility] SOFT DIET. 50% INTAKE RECENT MEALS. WILL CONTINUE TO PROVIDE DIET, MONITOR PO INTAKE. RD FOLLOWING
[2018-10-09 16:02] VITALS: BP 122/74
--- NOTE | 2018-10-09 20:16 | NUR ---
AWAKE,ALERT NO COMPALITNS VOICED. O2 @ 12 PER HIGHFLOW CANNULA ON. NO DISTRESS NOTED. IV INFUSING TO RIGHT HAND WITHOUT REDNESS OR EDEMA NOTED. INCONTINENT OF B/B WITH ZAN CARE GIVEN. POSITIONED TO RIGHT SIDE WITH PILLOWS FOR COMFORT. CL IN REACH. AT BEDSIDE
[2018-10-09 20:36] VITALS: BP 135/63
[2018-10-10 01:58] VITALS: BP 154/60
[2018-10-10 06:00] LABS: CALC OSMOLALITY 292 mosm/kg (275-300); CARBON DIOXIDE 29.7 mmol/L (21.0-32.0); CHLORIDE - SERUM 101 mmol/L (98-107); CREATININE - SERUM 0.9 mg/dL (0.6-1.3); GLUCOSE 161 mg/dL (74-106); POTASSIUM - SERUM 4.9 mmol/L (3.5-5.1); SODIUM 137 mmol/L (136-145); UREA NITROGEN 56 mg/dL (7-18); eGFR NON AFRICAN AMERICAN 87 mL/min (90-120)
[2018-10-10 06:04] LABS: BASOPHILS 0.1 % (0-2); EOSINOPHILS 0.3 % (0-7); HEMATOCRIT 42.7 % (42.0-54.0); HEMOGLOBIN 14.4 g/dL (13.5-17.5); IMMATURE GRANULOCYTES 0.3 % (0-5); LYMPHOCYTES 6.1 % (15-50); MCH 32.2 pg (26.0-34.0); MCHC 33.7 g/dL (31.0-37.0); MCV 95.5 fL (80.0-100.0); MEAN PLATELET VOLUME 11.8 fL (7.4-10.4); MONOCYTES 4.4 % (2-11); NEUTROPHILS 88.8 % (40-80); PLATELET COUNT 172 10x3/uL (130-400); RBC 4.47 10x6/uL (4.20-6.10); RDW 12.2 % (11.5-14.5); WBC 13.1 10x3/uL (4.8-10.8)
--- NOTE | 2018-10-10 07:25 | NUR ---
PT RESTING IN BED, EYES OPEN. AT BEDSIDE. NO C/O PAIN. NO S/S OF ACUTE DISTRESS NOTED. PT FULL CODE. ON [facility]. INCONTINENT OF BOWEL AND BLADDER. ON ELECTROLYTE PROTOCOL. ON 12L O2, HIGH FLOW NC. IV TO RIGHT HAND, SITE PATENT WITHOUT REDNESS OR SWELLING. NS INFUSING @ 10ML/HR. PT ACHS. TELEMETRY SR BBB. PT DENIES ANYTHING FURTHER AT THIS TIME. CALL LIGHT IN REACH. FALL PRECAUTIONS IN PLACE. WILL CONITNUE TO MONITOR.
[2018-10-10 09:16] VITALS: BP 174/87
[2018-10-10 12:00] VITALS: BP 139/87
--- NOTE | 2018-10-10 13:55 | NUR ---
IV INFILTRATED, DISCONTINUED IV, CATHETER TIP INTACT. UNABLE TO GET IV ACCESS. CALLED JASMINE FROM VASCULAR TO COME ASSESS. PT DENIES PAIN. NO S/S OF ACUTE DISTRESS. AT BEDSIDE. FALL PRECAUTIONS IN PLACE. WILL CONTINUE TO MONITOR.
--- NOTE | 2018-10-10 15:29 | NUR ---
VITICULTURE TEACHER NOTES - SPOKE WITH DR CLEVELAND ABOUT ENTERING DNR STATUS BASED ON PT PROVIDED LIVING WILL. PT ON HOSPICE. 12L O2 PER HF NC, COURSE CRACKLES TO ALL MICHELE, WORSE IN LOWER LOBES. TELEMETRY IN PLACE RUNNING SINUS WITH BBB. FAMILY AT BEDSIDE. NO OTHER NEEDS
--- NOTE | 2018-10-10 18:34 | NUR ---
PT RESTING IN BED EYES OPEN. NO C/O PAIN. NO S/S OF ACUTE DISTRESS NOTED. PT DENIES ANYTHING FURTHER AT THIS TIME. CALL LIGHT IN REACH. FALL PRECAUTIONS IN PLACE. AT BEDSIDE. WILL CONTINUE TO MONITOR.
[2018-10-10 20:35] VITALS: BP 150/90
--- NOTE | 2018-10-10 22:00 | NUR ---
A/OX4. PT IV CAME OUT. ATTEMPTED TWICE. HAD ICU NURSE ATTEMPT TWICE. ICU NURSE GOT ONE IN LT AC, HOWEVER IT ALSO INFILTRATED. PT HAS BEEN STUCK MULTIPLE TIMES. HE HAS BEEN HERE FOR QUITE SOME TIME. REC VASC ACCESS NURSE TO PUT IN PICC LINE DUE TO PT GETTING ROUNDS OF VANC. WILL PUT IN VASC CONSULT.
--- NOTE | 2018-10-10 23:40 | NUR ---
PT HAS FREQUENCY OF URINE. CHANGED BED TWICE IN LESS THAN AN HOUR. PUT CONDOM CATH ON TO PREVENT SKIN BREAKDOWN SINCE THERE IS A PROBABILITY SOME TIME WOULD PASS BEFORE ABLE TO GET TO ROOM. WILL CONTINUE POC.
[2018-10-11 04:57] VITALS: BP 114/91
[2018-10-11 06:56] LABS: BASOPHILS 0.1 % (0-2); EOSINOPHILS 2.1 % (0-7); HEMATOCRIT 46.3 % (42.0-54.0); HEMOGLOBIN 15.6 g/dL (13.5-17.5); IMMATURE GRANULOCYTES 0.3 % (0-5); LYMPHOCYTES 13.9 % (15-50); MCH 32.1 pg (26.0-34.0); MCHC 33.7 g/dL (31.0-37.0); MCV 95.3 fL (80.0-100.0); MEAN PLATELET VOLUME 11.3 fL (7.4-10.4); MONOCYTES 7.2 % (2-11); NEUTROPHILS 76.4 % (40-80); PLATELET COUNT 200 10x3/uL (130-400); RBC 4.86 10x6/uL (4.20-6.10); RDW 12.2 % (11.5-14.5); WBC 14.7 10x3/uL (4.8-10.8)
[2018-10-11 07:19] LABS: CALC OSMOLALITY 291 mosm/kg (275-300); CALCIUM 9.2 mg/dL (8.5-10.1); CHLORIDE - SERUM 102 mmol/L (98-107); CREATININE - SERUM 0.8 mg/dL (0.6-1.3); POTASSIUM - SERUM 4.6 mmol/L (3.5-5.1); SODIUM 139 mmol/L (136-145); UREA NITROGEN 50 mg/dL (7-18); eGFR NON AFRICAN AMERICAN > 90 mL/min (90-120)
[2018-10-11 07:23] LABS: GLUCOSE 112 mg/dL (74-106)
--- NOTE | 2018-10-11 07:40 | NUR ---
PT RESTING IN BED, EYES CLOSED. NO C/O PAIN. NO S/S OF ACUTED DISTRESS NOTED. PT ON TELEMETRY 72 BBB. ON ELECTROLYTE PROTOCOL. PT ON HOSPICE, DNR. NO IV ACCESS AT THIS TIME, VASCULAR ACCESS HAS BEEN CONSULTED. AT BEDSIDE. FALL PRECAUTIONS IN PLACE. PT ACHS. PT ON 12L O2, HIGH FLOW NC. PT DENIES ANYTHING FURTHER AT THIS TIME. CALL LIGHT IN REACH. WILL CONTINUE TO MONITOR.
--- NOTE | 2018-10-11 07:46 | NUR ---
OT NOTE( LATE ENTRY FOR 10/10/18) PT CONT TO C/O OF PAIN "EVERYWHERE" . RESISTANT TO GETTING UP OUT OF BED STATING THAT HE IS "DIEING". PT EASILY ENCOURAGED TO SIT UP ON EDGE OF BED ( BED MOB WITH MIN ASSIST). PT DOING BETTER WITH TRANSFERS. PT USES RW TO AMB A FEW STEPS FROM BED TO CHAIR WITH MIN ASSIST. TOLERATED SITTING UP IN CHAIR APPROX 1.5 HRS. SIMPLE GROOMING TASKS WITH SET UP. FORTINO ALEX, OTR/L
[2018-10-11 08:57] VITALS: BP 143/73
--- NOTE | 2018-10-11 09:30 | NUR ---
JASMINE FROM VASCULAR INSERTED A MIDLINE TO RIGHT UPPER ARM. PT DENIES ANYTHING FURTHER AT THIS TIME. CALL LIGHT IN REACH. WILL CONTINUE TO MONITOR.
[2018-10-11 13:03] VITALS: BP 149/83
[2018-10-11 17:26] VITALS: BP 138/74
--- NOTE | 2018-10-11 19:15 | NUR ---
PT RESTING IN BED EYES CLOSED. RESPIRATIONS EVEN AND UNLABORED. NO C/O PAIN. NO S/S OF ACUTE DISTRESS NOTED. CALL LIGHT IN REACH. AT BEDSIDE. FALL PRECAUTIONS IN PLACE. PT DENIES ANYTHING FURTHER AT THIS TIME. WILL CONTINUE TO MONITOR.
[2018-10-11 20:31] VITALS: BP 147/89
--- NOTE | 2018-10-12 01:39 | NUR ---
PATIENT COMPLAINING OF PAIN AND SLEEPLESSNESS. MEDICATION DELIVERED.
[2018-10-12 05:04] VITALS: BP 176/81
[2018-10-12 05:14] LABS: BASOPHILS 0.1 % (0-2); EOSINOPHILS 0.2 % (0-7); HEMATOCRIT 46.3 % (42.0-54.0); HEMOGLOBIN 15.5 g/dL (13.5-17.5); IMMATURE GRANULOCYTES 0.4 % (0-5); LYMPHOCYTES 7.7 % (15-50); MCH 32.3 pg (26.0-34.0); MCHC 33.5 g/dL (31.0-37.0); MCV 96.5 fL (80.0-100.0); MEAN PLATELET VOLUME 12.3 fL (7.4-10.4); MONOCYTES 3.7 % (2-11); NEUTROPHILS 87.9 % (40-80); RDW 12.1 % (11.5-14.5); WBC 11.9 10x3/uL (4.8-10.8)
[2018-10-12 05:30] LABS: PLATELET COUNT 140 10x3/uL (130-400)
[2018-10-12 07:51] LABS: CALCIUM 8.8 mg/dL (8.5-10.1); CARBON DIOXIDE 28.7 mmol/L (21.0-32.0); CHLORIDE - SERUM 101 mmol/L (98-107); CREATININE - SERUM 0.9 mg/dL (0.6-1.3); SODIUM 140 mmol/L (136-145); UREA NITROGEN 49 mg/dL (7-18); eGFR NON AFRICAN AMERICAN 87 mL/min (90-120)
[2018-10-12 08:02] LABS: CALC OSMOLALITY 294 mosm/kg (275-300); GLUCOSE 160 mg/dL (74-106); POTASSIUM - SERUM 5.3 mmol/L (3.5-5.1)
[2018-10-12 09:46] VITALS: BP 180/77
--- NOTE | 2018-10-12 11:59 | NUR ---
PATIENT IN BED, SKIN W/D TO TOUCH, COLOR PINK, RESP. REGULAR AND EVEN AT 20 WITH O2 AT 2 L/M NC. PATIENT'S POTASSIUM 5.3 AND ANA MATA GAVE OR FOR KAEXELATE 30MLS PO X'S 1. AT BEDSIDE. DENIES ANY C/O PAIN OR DISCOMFORT WHEN ASKED.
--- NOTE | 2018-10-12 13:32 | NUR ---
OT NOTE: PT CONTINUALLY STATING THAT HE CANT SIT UP TODAY DUE TO PAIN. REQUIRED EXT ENCOURAGEMENT AND PT WAS ABLE TO PERFORM BED MOB INCLUDING ROLLING AND SUPINE TO SIT WITH MIN ASSIST; TRANSFER TO CHAIR WITH USE OF RW AND MIN/MOD ASSIST. GROSS/FINE MOTOR TASKS WITH B HANDS TO IMPROVE ADLS FORTINO ALEX,OTR/L
--- NOTE | 2018-10-12 15:11 | NUR ---
PATIENT RESTING IN BED, DENIES NEEDS, RESPIRATIONS NONLABORED, DENIES PAIN, CL IN REACH
--- NOTE | 2018-10-12 16:08 | NUR ---
PATIENT IN BED CONDOM CATHETER OFF GOT A NEW ONE AND APPLIED. AT BEDSIDE, DENIES ANY C/O PAIN OR DISCOMFORT WHEN ASKED.
--- NOTE | 2018-10-12 16:25 | NUR ---
PATIENT'S BLOOD SUGAR CHECKED AND 111 NO INSULIN NEEDED. AT BEDSIDE, C/L WITHIN REACH AND SR'S UP X'S 2.
[2018-10-12 18:12] VITALS: BP 150/79
[2018-10-12 19:00] VITALS: BP 143/65
--- NOTE | 2018-10-12 20:20 | NUR ---
THE PATIENT WAS TALKING TO HIS WHEN STAFF ENTERED HIS AREA. BED IN THE LOW POSITION WITH SIDERAILS X2 AND CALL LIGHT WITHIN REACH. STAYING WITH PATIENT. PATIENT AND WAIFE EDUCATED ON SLEEPING MEDICATION AND PAIN MEDICATION. PATIENTS DEMONSTRATES UNDERSTANDING VIA TEACHBACK METHOD. THE PATIENT APPEARS COMFORTABLE AND HE AND HIS HAVE NO QUESTIONS OR CONCERNS AT THIS TIME.
[2018-10-13] VITALS: BP 140/61
--- NOTE | 2018-10-13 01:44 | NUR ---
CONDOM CATHETER BECAME LOOSE AND WAS REPLACED, ALONG WITH LINEN CHANGE.
[2018-10-13 03:00] VITALS: BP 136/51
[2018-10-13 04:45] LABS: BASOPHILS 0.1 % (0-2); EOSINOPHILS 0.4 % (0-7); HEMATOCRIT 42.3 % (42.0-54.0); HEMOGLOBIN 14.4 g/dL (13.5-17.5); IMMATURE GRANULOCYTES 0.3 % (0-5); LYMPHOCYTES 7.7 % (15-50); MCH 32.4 pg (26.0-34.0); MCV 95.1 fL (80.0-100.0); MEAN PLATELET VOLUME 11.5 fL (7.4-10.4); MONOCYTES 3.6 % (2-11); NEUTROPHILS 87.9 % (40-80); RBC 4.45 10x6/uL (4.20-6.10); RDW 12.1 % (11.5-14.5); WBC 10.7 10x3/uL (4.8-10.8)
[2018-10-13 04:48] LABS: PLATELET COUNT 199 10x3/uL (130-400)
[2018-10-13 05:17] LABS: ALBUMIN 2.2 g/dL (3.4-5.0); ALKALINE PHOSPHATASE 56 U/L (46-116); ALT (SGPT) 21 U/L (10-68); BILIRUBIN - TOTAL 0.65 mg/dL (0.2-1.3); CALC OSMOLALITY 290 mosm/kg (275-300); CALCIUM 8.7 mg/dL (8.5-10.1); CHLORIDE - SERUM 101 mmol/L (98-107); CREATININE - SERUM 0.9 mg/dL (0.6-1.3); GLUCOSE 195 mg/dL (74-106); POTASSIUM - SERUM 4.8 mmol/L (3.5-5.1); PROTEIN - SERUM 5.2 g/dL (6.4-8.2); SODIUM 137 mmol/L (136-145); UREA NITROGEN 46 mg/dL (7-18); eGFR NON AFRICAN AMERICAN 87 mL/min (90-120)
[2018-10-13 08:00] VITALS: BP 154/79
[2018-10-13 12:00] VITALS: BP 155/79
[2018-10-13 16:00] VITALS: BP 166/78
[2018-10-13 19:00] VITALS: BP 160/90
--- NOTE | 2018-10-13 19:15 | NUR ---
RECEIVED REPORT, ASSUMED CARE, AT BEDSIDE, DENIES NEEDS, CHANDRA TO GRAVITY, MIDLINE TO GI PATENT NON-TENDER, ASSESSMENT COMPLETE, NO S/S OF DISTRESS NOTED, WILL CONTINUE POC
[2018-10-14] VITALS: BP 158/81
--- NOTE | 2018-10-14 00:04 | NUR ---
Pitent in bed sleeping with O2 in place via n/c. at bedside, no needs noted no s/s of distress, call light in reach.
[2018-10-14 03:00] VITALS: BP 168/75
[2018-10-14 06:32] LABS: BASOPHILS 0 % (0-2); EOSINOPHILS 0.1 % (0-7); HEMATOCRIT 42.8 % (42.0-54.0); HEMOGLOBIN 14.5 g/dL (13.5-17.5); IMMATURE GRANULOCYTES 0.2 % (0-5); LYMPHOCYTES 10.9 % (15-50); MCH 31.9 pg (26.0-34.0); MCHC 33.9 g/dL (31.0-37.0); MCV 94.1 fL (80.0-100.0); MEAN PLATELET VOLUME 11.4 fL (7.4-10.4); MONOCYTES 6.1 % (2-11); NEUTROPHILS 82.7 % (40-80); PLATELET COUNT 178 10x3/uL (130-400); RBC 4.55 10x6/uL (4.20-6.10); RDW 12.1 % (11.5-14.5); WBC 12.7 10x3/uL (4.8-10.8)
[2018-10-14 06:44] LABS: ALBUMIN 2.2 g/dL (3.4-5.0); ALKALINE PHOSPHATASE 53 U/L (46-116); ALT (SGPT) 19 U/L (10-68); BILIRUBIN - TOTAL 0.61 mg/dL (0.2-1.3); CALC OSMOLALITY 285 mosm/kg (275-300); CALCIUM 8.6 mg/dL (8.5-10.1); CARBON DIOXIDE 30.8 mmol/L (21.0-32.0); CHLORIDE - SERUM 102 mmol/L (98-107); CREATININE - SERUM 0.8 mg/dL (0.6-1.3); POTASSIUM - SERUM 4.6 mmol/L (3.5-5.1); PROTEIN - SERUM 5.1 g/dL (6.4-8.2); SODIUM 137 mmol/L (136-145); UREA NITROGEN 40 mg/dL (7-18); VANCOMYCIN - RANDOM 19.9 ug/mL (10.0-20.0); eGFR NON AFRICAN AMERICAN > 90 mL/min (90-120)
[2018-10-14 06:46] LABS: GLUCOSE 135 mg/dL (74-106)
[2018-10-14 08:48] VITALS: BP 179/96
[2018-10-14 12:00] VITALS: BP 131/82
[2018-10-14 16:00] VITALS: BP 163/71
[2018-10-14 19:00] VITALS: BP 138/61
--- NOTE | 2018-10-14 19:20 | NUR ---
RECEIVED REPORT, ASSUMED CARE, DENIES NEEDS, BED LOWEST POSITION, CALL LIGHT IN REACH, NO S/S OF DISTRESS NOTED, LINENS CHANGED, AT BEDSIDE, WILL CONITNUE POC
--- NOTE | 2018-10-14 22:38 | NUR ---
AT BEDSIDE STAYED NO NEEDS. PATIENT ASLEEP WITH NO S/S OF DISTRESS. STAED HE DID MUCH BETTER TODAY, WILL CONTIUE WITH PLAIN OF CARE
[2018-10-15] VITALS: BP 135/59
[2018-10-15 03:00] VITALS: BP 128/61
[2018-10-15 06:30] LABS: BASOPHILS 0.1 % (0-2); EOSINOPHILS 0.2 % (0-7); HEMATOCRIT 42.6 % (42.0-54.0); HEMOGLOBIN 14.2 g/dL (13.5-17.5); IMMATURE GRANULOCYTES 0.3 % (0-5); LYMPHOCYTES 12.9 % (15-50); MCH 31.6 pg (26.0-34.0); MCHC 33.3 g/dL (31.0-37.0); MCV 94.9 fL (80.0-100.0); MEAN PLATELET VOLUME 11.5 fL (7.4-10.4); MONOCYTES 5.1 % (2-11); NEUTROPHILS 81.4 % (40-80); PLATELET COUNT 207 10x3/uL (130-400); RBC 4.49 10x6/uL (4.20-6.10); RDW 12.2 % (11.5-14.5); WBC 13.2 10x3/uL (4.8-10.8)
[2018-10-15 06:59] LABS: ALBUMIN 2.3 g/dL (3.4-5.0); ALKALINE PHOSPHATASE 57 U/L (46-116); BILIRUBIN - TOTAL 0.54 mg/dL (0.2-1.3); CALC OSMOLALITY 290 mosm/kg (275-300); CALCIUM 8.8 mg/dL (8.5-10.1); CARBON DIOXIDE 32.4 mmol/L (21.0-32.0); CHLORIDE - SERUM 102 mmol/L (98-107); GLUCOSE 153 mg/dL (74-106); POTASSIUM - SERUM 4.6 mmol/L (3.5-5.1); PROTEIN - SERUM 5.2 g/dL (6.4-8.2); SODIUM 140 mmol/L (136-145); UREA NITROGEN 38 mg/dL (7-18); eGFR NON AFRICAN AMERICAN 77 mL/min (90-120)
[2018-10-15 07:02] LABS: ALT (SGPT) 28 U/L (10-68)
[2018-10-15 09:00] VITALS: BP 167/104
--- NOTE | 2018-10-15 09:37 | MORECARE ---
CASE MANAGEMENT DISCHARGE SUMMARY PATIENT: JEEVAN JOSEPH UNIT: [id number] ADM DATE: 09/27/18 AGE: 77 : 39 SEX: M ROOM/BED: D.2230 AUTHOR: TONI FAITH PHYSICIAN: REFERRING PHYSICIAN: JAYNE HAGAN MD DATE OF SERVICE: 10/15/18 Discharge Plan Patient Name: JEEVAN JOSEPH Facility: [facility]:[place] : 1940 Planned Disposition: [facility] w Plan Readm Anticipated Discharge Date: Discharge Date: Expected LOS: Initial Reviewer: [email or web address] Initial Review Date: 09/28/2018 Generated: 10/15/18 10:37 am Comments DCP- Discharge Planning Updated by [id number]: Leila Barber on 09/28/18 3:[address] Patient Name: JEEVAN JOSEPH Admission Status: ER Accout number: [id number] Admission Date: 09-27-2018 : 1940 Admission Diagnosis: Attending: JAYNE HAGAN Current LOS: 1 Anticipated DC Date: Planned Disposition: [facility] w Plan Readm Primary Insurance: MEDICARE A & B Discharge Planning Comments: CM met with patient and his to discuss discharge planning. Patient is asleep and the answers all questions. States he lives in terminal carman care at [facility] and the plan is to return there. She states he is unable to stand, so he will need ambulance transfer. States he is dependent on the nursing staff for his ADL's. I called [facility] and the DON has left for the day. I will call again on Monday. CM will continue to follow and assist with discharge planning/needs. Typing Office Worker: Leila Braber DCPIA - Discharge Planning Initial Assessment Updated by [id number]: Leila Barber on 09/28/18 4:28 pm * Is the patient Alert and Oriented? No * How many steps to enter\exit or inside your home? 0/0 * PCP custodial doctor * Pharmacy [facility] * Preadmission Environment [facility] * Facility Name [facility] * ADLs Total Dependent * Equipment Nebulizer Other Oxygen Walker * Other Equipment Power wheelchair * List name and contact numbers for known caregivers / representatives who currently or will assist patient after discharge: Lani Joseph - spouse - [phone] * Verbal permission to speak to the caregivers and representatives has been obtained from the patient. Yes * Community resources currently utilized None * Additional services required to return to the preadmission environment? No * Can the patient safely return to the preadmission environment? Yes * Has this patient been hospitalized within the prior 30 days at any hospital? No External Providers External Provider: [facility] Next Contact Date: Service Request Date: Service Type: Resolution: Reviewer: Comments: Last DP export: 09/28/18 3:38 p Patient Name: JEEVAN JOSEPH Page [phone] at 0937 All edits/amendments must be made on the electronic document DICTATION DATE: 10/15/18936 STEEL ESTIMATOR: KRISHNA 10/15/18936 RPT#: [id number] DC DATE: STATUS: ADM IN [facility] [address] [place] [address] END OF REPORT
[2018-10-15 13:34] VITALS: BP 127/62
--- NOTE | 2018-10-15 14:42 | NUR ---
OT NOTE: PT VERY RESISTIVE TO THERAPY TODAY. EVERYDAY HE STATES THAT HE CANT DO ANYTHING, BUT HE IS USUALLY ENCOURAGED TO PERFORM. TODAY, PT BEGAN YELLING THAT HE COULDNT GET UP AND TO PLEASE JUST LET HIM SLEEP. AFTER EXTENSIVE CUING, PT WAS AGREEABLE TO SIT ON EDGE OF BED AND STAND FOR ONLY SECONDS, WHILE LINENS AND PADS WERE CHANGED. PT REFUSED TO SIT UP IN CHAIR. ASSISTED PT BACK TO BED. FORTINO ALEX, OTR/L
[2018-10-15 16:00] VITALS: BP 149/89
[2018-10-15 21:13] VITALS: BP 141/77
--- NOTE | 2018-10-16 01:57 | NUR ---
ALERT RESTING IN BED RESP UNLABORED NO APPARENTR DISTRESS CALL LIGHT IN REACH
[2018-10-16 05:23] VITALS: BP 154/80
[2018-10-16 06:04] LABS: BASOPHILS 0.2 % (0-2); EOSINOPHILS 1.2 % (0-7); HEMATOCRIT 42.2 % (42.0-54.0); HEMOGLOBIN 14.7 g/dL (13.5-17.5); IMMATURE GRANULOCYTES 0.3 % (0-5); LYMPHOCYTES 18.4 % (15-50); MCH 33.2 pg (26.0-34.0); MCHC 34.8 g/dL (31.0-37.0); MCV 95.3 fL (80.0-100.0); MEAN PLATELET VOLUME 12.2 fL (7.4-10.4); MONOCYTES 6.9 % (2-11); PLATELET COUNT 189 10x3/uL (130-400); RBC 4.43 10x6/uL (4.20-6.10); RDW 12.2 % (11.5-14.5); WBC 13.3 10x3/uL (4.8-10.8)
[2018-10-16 06:26] LABS: ALBUMIN 2.3 g/dL (3.4-5.0); ALKALINE PHOSPHATASE 57 U/L (46-116); ALT (SGPT) 24 U/L (10-68); BILIRUBIN - TOTAL 0.61 mg/dL (0.2-1.3); CALC OSMOLALITY 287 mosm/kg (275-300); CALCIUM 8.7 mg/dL (8.5-10.1); CARBON DIOXIDE 31.7 mmol/L (21.0-32.0); CHLORIDE - SERUM 102 mmol/L (98-107); CREATININE - SERUM 0.9 mg/dL (0.6-1.3); GLUCOSE 109 mg/dL (74-106); PROTEIN - SERUM 5.2 g/dL (6.4-8.2); SODIUM 139 mmol/L (136-145); UREA NITROGEN 38 mg/dL (7-18); eGFR NON AFRICAN AMERICAN 87 mL/min (90-120)
[2018-10-16 06:27] LABS: POTASSIUM - SERUM 3.9 mmol/L (3.5-5.1)
--- NOTE | 2018-10-16 07:30 | NUR ---
REC'D IN BED WITH EYES CLOSED EASILY TO AROUSED WHEN NAME IS CALLED. RESP EVEN AND UNLABORED WITH 02 IN USE VIA N/C. NO C/O NOTED OR VOICED. ASSESSMENT COMPLETED. AND CL AT BEDSIDE.
[2018-10-16] MEDS ORDERED: COREG 3.1253.125 MG PO (08:05)
[2018-10-16 08:07] VITALS: BP 193/106
[2018-10-16] MEDS ORDERED: CELEXA20 MG PO (08:07)
[2018-10-16] MEDS ORDERED: BUPROPION HCL100 M1 PO (08:08)
[2018-10-16] MEDS ORDERED: COLACE100 MG PO (08:09)
[2018-10-16] MEDS ORDERED: GLUCOPHAGE500 MG PO (08:09)
[2018-10-16] MEDS ORDERED: MIRALAX17 GM PO (08:09)
[2018-10-16] MEDS ORDERED: PREDNISONE10 MG PO (08:14)
--- NOTE | 2018-10-16 08:54 | MORECARE ---
CASE MANAGEMENT DISCHARGE SUMMARY PATIENT: JEEVAN JOSEPH UNIT: [id number] ADM DATE: 09/27/18 AGE: 77 : 39 SEX: M ROOM/BED: D.2230 AUTHOR: TONI FAITH PHYSICIAN: REFERRING PHYSICIAN: JAYNE HAGAN MD DATE OF SERVICE: 10/16/18 Discharge Plan Patient Name: JEEVAN JOSEPH Facility: [facility]:[place] : 1940 Planned Disposition: [facility] w Plan Readm Anticipated Discharge Date: Discharge Date: Expected LOS: Initial Reviewer: [email or web address] Initial Review Date: 09/28/2018 Generated: 10/16/18 9:54 am Comments DCP- Discharge Planning Updated by [email or web address]: Leila Barber on 10/16/18 7:[address] Discharging to a Medicare (skilled) bed to [facility] this morning. They are picking him up in their van at 0900. is in room and in agreement to plan. She states he has been able to sit up in the chair and he does ride in the van when needed. talent development coordinator aware. DCP- Discharge Planning Updated by [id number]: Leila Barber on 09/28/18 3:[address] Patient Name: JEEVAN JOSEPH Admission Status: ER Accout number: [id number] Admission Date: 09-27-2018 : 1940 Admission Diagnosis: Attending: JAYNE HAGAN Current LOS: 1 Anticipated DC Date: Planned Disposition: [facility] w Plan Readm Primary Insurance: MEDICARE A & B Discharge Planning Comments: CM met with patient and his to discuss discharge planning. Patient is asleep and the answers all questions. States he lives in [facility]cf care at [facility] and the plan is to return there. She states he is unable to stand, so he will need ambulance transfer. States he is dependent on the nursing staff for his ADL's. I called [facility] and the DON has left for the day. I will call again on Monday. CM will continue to follow and assist with discharge planning/needs. Health And Safety Instructor: Leila Barber DCPIA - Discharge Planning Initial Assessment Updated by [email or web address]: Leila Barber on 09/28/18 4:28 pm * Is the patient Alert and Oriented? No * How many steps to enter\exit or inside your home? 0/0 * PCP [facility] doctor * Pharmacy [facility] * Preadmission Environment [employer] * Facility Name [facility] * ADLs Total Dependent * Equipment Nebulizer Other Oxygen Walker * Other Equipment Power wheelchair * List name and contact numbers for known caregivers / representatives who currently or will assist patient after discharge: Lani Joseph - spouse - [phone] * Verbal permission to speak to the caregivers and representatives has been obtained from the patient. Yes * Community resources currently utilized None * Additional services required to return to the preadmission environment? No * Can the patient safely return to the preadmission environment? Yes * Has this patient been hospitalized within the prior 30 days at any hospital? No Coverage Notice Reviewer: [id number] Ruth Barber Notice Issued Date-Time: 10/16/2018 8:35 Notice Type: IM Discharge Notice Notice Delivered To: Family Member Relationship to Patient: Spouse Delivery Professional Name: Lani Joseph Delivery Method: HAND - Hand Delivered Priyanka Days: Prior Verbal Notification: Recipient Understood Notice: Yes Recipient Signature: Yes Med Rec Note Co-signed by Attending: Coverage Notice Comment: IMM explained, signed by , copy given, original placed in MR Last DP export: 10/15/18 8:37 a Patient Name: JEEVAN JOSEPH Page [phone] at 0854 All edits/amendments must be made on the electronic document DICTATION DATE: 10/16/18852 PROPELLANT CHARGE ZONE ASSEMBLER: KRISHNA 10/16/1853 RPT#: [id number] DC DATE: STATUS: ADM IN [facility] [address] [place] [address] END OF REPORT
--- NOTE | 2018-10-16 09:15 | NUR ---
DC BACK TO [facility] HOME AT THIS. AWAKE AND ALERT. RESP EVEN AND UNLABORED WITH NO DISTRESS. WAS GIVEN DC INSTRUCTION WELL REPORT WAS CALLED AND GIVEN TO RONNY CHARGE NURSE. PT WAS IN STABLE CONDITION UPON DEPARTURE.
--- NOTE | 2018-10-17 07:10 | MORECARE ---
CASE MANAGEMENT DISCHARGE SUMMARY PATIENT: JEEVAN JOSEPH UNIT: [id number] ADM DATE: 09/27/18 AGE: 77 : 39 SEX: M ROOM/BED: D.2230 AUTHOR: TONI FAITH PHYSICIAN: REFERRING PHYSICIAN: JAYNE HAGAN MD DATE OF SERVICE: 10/17/18 Discharge Plan Patient Name: JEEVAN JOSEPH Facility: [facility]:[place] : 1940 Planned Disposition: [facility] w Plan Readm Anticipated Discharge Date: Discharge Date: 10/16/2018 Expected LOS: 0 Initial Reviewer: [email or web address] Initial Review Date: 09/28/2018 Generated: 10/17/18 8:10 am Comments DCP- Discharge Planning Updated by [email or web address]: Leila Barber on 10/16/18 7:[address] Discharging to a Medicare (skilled) bed to [facility] this morning. They are picking him up in their van at 0900. is in room and in agreement to plan. She states he has been able to sit up in the chair and he does ride in the van when needed. hris coordinator aware. DCP- Discharge Planning Updated by [email or web address]: Leila Barber on 09/28/18 3:[address] Patient Name: JEEVAN JOSEPH Admission Status: ER Accout number: [id number] Admission Date: 09-27-2018 : 1940 Admission Diagnosis: Attending: JAYNE HAGAN Current LOS: 1 Anticipated DC Date: Planned Disposition: [facility] w Plan Readm Primary Insurance: MEDICARE A & B Discharge Planning Comments: CM met with patient and his to discuss discharge planning. Patient is asleep and the answers all questions. States he lives in correction care at [facility] and the plan is to return there. She states he is unable to stand, so he will need ambulance transfer. States he is dependent on the nursing staff for his ADL's. I called [facility] and the DON has left for the day. I will call again on Monday. CM will continue to follow and assist with discharge planning/needs. Legislative Analyst: Leila Barber DCPIA - Discharge Planning Initial Assessment Updated by [id number]: Leila Barber on 09/28/18 4:28 pm * Is the patient Alert and Oriented? No * How many steps to enter\exit or inside your home? 0/0 * PCP [facility] doctor * Pharmacy Correction * Preadmission Environment [facility] * Facility Name [facility] * ADLs Total Dependent * Equipment Nebulizer Other Oxygen Walker * Other Equipment Power wheelchair * List name and contact numbers for known caregivers / representatives who currently or will assist patient after discharge: Lani Joseph - spouse - [phone] * Verbal permission to speak to the caregivers and representatives has been obtained from the patient. Yes * Community resources currently utilized None * Additional services required to return to the preadmission environment? No * Can the patient safely return to the preadmission environment? Yes * Has this patient been hospitalized within the prior 30 days at any hospital? No Coverage Notice Reviewer: [id number] - Leila Barber Notice Issued Date-Time: 10/16/2018 8:35 Notice Type: IM Discharge Notice Notice Delivered To: Family Member Relationship to Patient: Spouse Manager Regional Name: Lani Joseph Delivery Method: HAND - Hand Delivered Priyanka Days: Prior Verbal Notification: Recipient Understood Notice: Yes Recipient Signature: Yes Med Rec Note Co-signed by Attending: Coverage Notice Comment: IMM explained, signed by , copy given, original placed in MR Last DP export: 10/16/18 7:54 a Patient Name: JEEVAN JOSEPH Page [id number] at 0710 All edits/amendments must be made on the electronic document DICTATION DATE: 10/17/18709 HEAD OF ACQUISITIONS: KRISHNA 10/17/18709 RPT#: [id number] DC DATE:10/16/18 STATUS: DIS IN [facility] [address] [place] [address] END OF REPORT
== END 2018-10-16 09:37 | DRG 177 ==
LOC: D.ER 02:02 → D.MS 04:36 → D.EDHOLD 04:36 → D.MS 05:55
PROVIDERS: Emergency Medicine; Family Medicine; Internal Medicine Nephrology; ADMIT Family Medicine
DX: J69.0 Pneumonitis due to inhalation of food and vomit (principal); J96.01 Acute respiratory failure with hypoxia; I50.43 Acute on chronic combined systolic (congestive) and diastolic (congestive) heart failure; J44.0 Chronic obstructive pulmonary disease with (acute) lower respiratory infection; J44.1 Chronic obstructive pulmonary disease with (acute) exacerbation; J96.11 Chronic respiratory failure with hypoxia; E87.0 Hyperosmolality and hypernatremia; I11.0 Hypertensive heart disease with heart failure; E11.42 Type 2 diabetes mellitus with diabetic polyneuropathy; E11.65 Type 2 diabetes mellitus with hyperglycemia

== ENCOUNTER 2018-10-27 01:19 | Inpatient (IN) | payer MEDICARE ==
[~2018-10-27] VITALS: Ht 167.6 cm; Wt 102.3 kg
[~2018-10-27 01:19] MED LIST changes: +BUPROPION HCL100 M1 PO; +COLACE100 MG PO; +COREG 3.1253.125 MG PO; +MIRALAX17 GM PO; +OXYBUTYNIN10 MG/BOTT PO
[2018-10-27 02:15] LABS: BASOPHILS 0.1 % (0-2); EOSINOPHILS 0.9 % (0-7); HEMOGLOBIN 13.6 g/dL (13.5-17.5); IMMATURE GRANULOCYTES 0.1 % (0-5); LYMPHOCYTES 21.5 % (15-50); MCH 32.3 pg (26.0-34.0); MCHC 32.4 g/dL (31.0-37.0); MCV 99.8 fL (80.0-100.0); MEAN PLATELET VOLUME 10.8 fL (7.4-10.4); MONOCYTES 9.1 % (2-11); NEUTROPHILS 68.3 % (40-80); RBC 4.21 10x6/uL (4.20-6.10); RDW 12.7 % (11.5-14.5); WBC 7.7 10x3/uL (4.8-10.8)
[2018-10-27 02:18] LABS: PLATELET COUNT 117 10x3/uL (130-400)
[2018-10-27 02:20] LABS: APTT 24.6 SECONDS (22.8-39.4); INR 1.03 (0.85-1.17)
[2018-10-27 02:26] LABS: ALBUMIN 2.6 g/dL (3.4-5.0); ALKALINE PHOSPHATASE 58 U/L (46-116); ALT (SGPT) 23 U/L (10-68); BILIRUBIN - TOTAL 0.53 mg/dL (0.2-1.3); CALC OSMOLALITY 295 mosm/kg (275-300); CARBON DIOXIDE 38.3 mmol/L (21.0-32.0); CHLORIDE - SERUM 105 mmol/L (98-107); GLUCOSE 103 mg/dL (74-106); POTASSIUM - SERUM 4.2 mmol/L (3.5-5.1); PROTEIN - SERUM 5.8 g/dL (6.4-8.2); SODIUM 145 mmol/L (136-145); UREA NITROGEN 32 mg/dL (7-18); eGFR NON AFRICAN AMERICAN 77 mL/min (90-120)
--- NOTE | 2018-10-27 02:30 | NUR ---
RECEIVED PT FROM THE ER VIA STRECTHER. PT IS ALERT AND ORIENTATED X 1. PT HAS A IV 20GA IN THE RT AC. FAMILY AT BESIDE. BED IN LOW POSITION WITH CALL LIGHT IN REACH. WIIL CONTINUE TO MONITOR PT AND FOLLOW PLAN OF CARE.
[2018-10-27 02:49] LABS: CKMB 1.9 U/L (0.0-3.6); CREATINE KINASE 19 UL (21-232); PRO BNP 2699 pg/mL (0-450); TROPONIN-I 0.021 ng/mL (0.000-0.060)
--- NOTE | 2018-10-27 05:17 | NUR ---
PER PENITENTIARY PACKETT THAT WAS SENT BY PATIENT. PT IS A DNR. WILL PASS THIS ON AT SHIFT CHANGE TO ON COMING NURSE.
--- NOTE | 2018-10-27 05:26 | NUR ---
PT LAYING IN BED WITH EYES CLOSED RESTING COMFORTABLY. PT IS ON A BYPAP CONTINOUS AT 70%%. BED IN LOW POSITION WITH CALL LIGHT IN USE. WILL CONTINUE TO MONITOR PT AND FOLLOW PLAN OF CARE.
[2018-10-27 05:27] VITALS: BP 175/98; Ht 167.6 cm; Wt 102.3 kg
--- NOTE | 2018-10-27 07:22 | NUR ---
PT SLEEPING, DID NOT WAKE WHEN I ENTERED. DID NOT FURTHER DISTURB. AT BEDSIDE, SLEEPING WELL. ALSO DID NOT WAKE. CL IN REACH. SRX2. BIPAP ON AND IN PLROPPER PLACE.
--- NOTE | 2018-10-27 10:45 | NUR ---
EVERYTIME I'VE BEEN IN THE ROOM PT HAS VERBALIZED HOW EXTREMELY UNHAPPY HE IS TO BE HERE AND HOW HE WANTS TO LEAVE IMMEDIATELY. TOLD DR. SOOD. PTS LONG-TERM CALLED THIS A.M AND STATED THAT WHEN HE GETS PARTICULARLY GRUMPY HE WILL INTENTIONALLY URINATE ON THE STAFF (HE DID THE SAME TO OUR TECH LAST NIGHT). THIS A.M HE EXHIBITED THIS BEHAVIOR AGAIN.
--- NOTE | 2018-10-27 10:57 | NUR ---
PT CAN D/C WHEN HOSPICE PLANS ARE FIGURED OUT, TO [facility] VIA DR. SOOD.
--- NOTE | 2018-10-27 13:18 | NUR ---
PT TO D/C BACK TO [facility] ON COMFORT CARE.
--- NOTE | 2018-10-27 13:30 | NUR ---
RESTING QUIETY NAD NOTED
--- NOTE | 2018-10-27 13:46 | MORECARE ---
CASE MANAGEMENT DISCHARGE SUMMARY PATIENT: JEEVAN JOSEPH UNIT: [id number] ADM DATE: 10/27/18 AGE: 77 : 39 SEX: M ROOM/BED: D.2109 AUTHOR: TONI FAITH PHYSICIAN: REFERRING PHYSICIAN: MCKAYLA HERNANDEZ MD DATE OF SERVICE: 10/27/18 Discharge Plan Patient Name: JEEVAN JOSEPH [facility] [facility] 1940 Planned Disposition: Anticipated Discharge Date: Discharge Date: Expected LOS: Initial Reviewer: [email or web address] Initial Review Date: 10/27/2018 Generated: 10/27/18 2:46 pm Patient Name: JEEVAN JOSEPH Page [id number] at 1346 All edits/amendments must be made on the electronic document DICTATION DATE: 10/27/18 1346 MANUFACTURING COST ESTIMATOR: KRISHNA 10/27/18 1346 RPT#: [id number] DC DATE: STATUS: ADM IN [facility] [address] [place] [address] END OF REPORT
--- NOTE | 2018-10-27 13:53 | MORECARE ---
CASE MANAGEMENT DISCHARGE SUMMARY PATIENT: JEEVAN JOSEPH UNIT: [id number] ADM DATE: 10/27/18 AGE: 77 : 39 SEX: M ROOM/BED: D.2109 AUTHOR: TONI FAITH PHYSICIAN: REFERRING PHYSICIAN: MCKAYLA HERNANDEZ MD DATE OF SERVICE: 10/27/18 Discharge Plan Patient Name: JEEVAN JOSEPH [facility] : 1940 Planned Disposition: Anticipated Discharge Date: Discharge Date: Expected LOS: Initial Reviewer: [email or web address] Initial Review Date: 10/27/2018 Generated: 10/27/18 2:52 pm Comments DCP- Discharge Planning Updated by [email or web address]: Yeimi Ibarra on 10/27/18 12:[address] CM met with patient and spouse Lani, regarding request to return to facility on palliative care. RAYMUNDO spoke with Yaneli regarding palliative care and she states the facility offers this and is willing to accept patient back to [facility]. CM attempted to contact DAVIDSON Andino @[phone] (s-I-l), but did not get an answer to call. CM explained the intent of Palliative Care vs Cure and both patient and agree to same. Patient Choice Form for [facility] signed and a copy left for patient. Patient will transport via ambulance. Notified patient's nurse of same. Family voices no other needs. Yeimi Ibarra RN, CM Last DP export: 10/27/18 12:46 pm Patient Name: JEEVAN JOSEPH Page [phone] at 1353 All edits/amendments must be made on the electronic document DICTATION DATE: 10/27/18 1352 TOP AND SEAT COVER FITTER: KRISHNA 10/27/18 1352 RPT#: [id number] DC DATE: STATUS: ADM IN [facility] [address] [place] [address] END OF REPORT
--- NOTE | 2018-10-27 15:13 | NUR ---
AMBULANCE HERE FOR PT. TO RIDE VIA AMBULANCE BACK TO [place] WITH . NO CONCENRS OR COMPLAITNS.
--- NOTE | 2018-10-30 07:15 | MORECARE ---
CASE MANAGEMENT DISCHARGE SUMMARY PATIENT: JEEVAN JOSEPH UNIT: [id number] ADM DATE: 10/27/18 AGE: 77 : 39 SEX: M ROOM/BED: D.2109 AUTHOR: MARCELL,DOC PHYSICIAN: REFERRING PHYSICIAN: MCKAYLA HERNANDEZ MD DATE OF SERVICE: 10/30/18 Discharge Plan Patient Name: JEEVAN JOSEPH Facility: [facility]:[place] : 1940 Planned Disposition: Retirement Facility Anticipated Discharge Date: 10/27/18 Discharge Date: 10/27/2018 Expected LOS: 1 Initial Reviewer: [email or web address] Initial Review Date: 10/27/2018 Generated: 10/30/18 8:15 am Comments DCP- Discharge Planning Updated by [email or web address]: Yeimi Ibarra on 10/27/18 12:[address] CM met with patient and spouse Lani, regarding request to return to facility on palliative care. CM spoke with Yaneli regarding palliative care and she states the facility offers this and is willing to accept patient back to [facility]. CM attempted to contact DAVDISON Andino @[phone] (s-I-l), but did not get an answer to call. CM explained the intent of Palliative Care vs Cure and both patient and agree to same. Patient Choice Form for [facility] signed and a copy left for patient. Patient will transport via ambulance. Notified patient's nurse of same. Family voices no other needs. Yeimi Ibarra RN CM Coverage Notice Reviewer: [id number] Ruth Ibarra Notice Issued Date-Time: 10/27/2018 10:50 Notice Type: Patient Choice Letter Notice Delivered To: Family Member Relationship to Patient: Spouse Turf Keeper Name: Lani Joseph Delivery Method: - Priyanka Days: Prior Verbal Notification: Recipient Understood Notice: Recipient Signature: Med Rec Note Co-signed by Attending: Coverage Notice Comment: Reviewer: [email or web address] Ruth Ibarra Notice Issued Date-Time: 10/27/2018 11:26 Notice Type: IM Admission Notice Notice Delivered To: Family Member Relationship to Patient: Spouse Turf Keeper Name: Lani Joseph Delivery Method: - Priyanka Days: Prior Verbal Notification: Recipient Understood Notice: Recipient Signature: Med Rec Note Co-signed by Attending: Coverage Notice Comment: Last DP export: 10/27/18 12:53 pm Patient Name: JEEVAN JOSEPH Page [phone] at 0715 All edits/amendments must be made on the electronic document DICTATION DATE: 10/30/18714 RECREATIONAL THERAPY TECHNICIAN: KRISHNA 10/30/18714 RPT#: [id number] DC DATE:10/27/18 STATUS: DIS IN [facility] [address] [place] [address] END OF REPORT
--- NOTE | 2018-10-30 07:22 | MORECARE ---
CASE MANAGEMENT DISCHARGE SUMMARY PATIENT: JEEVAN JOSEPH UNIT: [id number] ADM DATE: 10/27/18 AGE: 77 : 39 SEX: M ROOM/BED: D.2109 AUTHOR: MARCELL,DOC PHYSICIAN: REFERRING PHYSICIAN: MCKAYLA HERNANDEZ MD DATE OF SERVICE: 10/30/18 Discharge Plan Patient Name: JEEVAN JOSEPH Facility: [facility]:[place] : 1940 Planned Disposition: Long-Term Facility Anticipated Discharge Date: 10/27/18 Discharge Date: 10/27/2018 Expected LOS: 1 Initial Reviewer: [email or web address] Initial Review Date: 10/27/2018 Generated: 10/30/18 8:22 am Comments DCP- Discharge Planning Updated by [id number]: Yeimi Ibarra on 10/27/18 12:[address] CM met with patient and spouse Lani, regarding request to return to facility on palliative care. CM spoke with Yaneli regarding palliative care and she states the facility offers this and is willing to accept patient back to [facility]. CM attempted to contact DAVIDSON Andino @[phone] (s-I-l), but did not get an answer to call. CM explained the intent of Palliative Care vs Cure and both patient and agree to same. Patient Choice Form for [facility] signed and a copy left for patient. Patient will transport via ambulance. Notified patient's nurse of same. Family voices no other needs. Yeimi Ibarra RN CM Coverage Notice Reviewer: [email or web address] Ruth Ibarra Notice Issued Date-Time: 10/27/2018 10:50 Notice Type: Patient Choice Letter Notice Delivered To: Family Member Relationship to Patient: Spouse Explosive Technician Name: Lani Joseph Delivery Method: - Priyanka Days: Prior Verbal Notification: Recipient Understood Notice: Recipient Signature: Med Rec Note Co-signed by Attending: Coverage Notice Comment: Reviewer: [email or web address] Ruth Ibarra Notice Issued Date-Time: 10/27/2018 11:26 Notice Type: IM Admission Notice Notice Delivered To: Family Member Relationship to Patient: Spouse Explosive Technician Name: Lani Joseph Delivery Method: - Priyanka Days: Prior Verbal Notification: Recipient Understood Notice: Recipient Signature: Med Rec Note Co-signed by Attending: Coverage Notice Comment: Last DP export: 10/27/18 12:53 pm Patient Name: JEEVAN JOSEPH Page [phone] at 0722 All edits/amendments must be made on the electronic document DICTATION DATE: 10/30/18720 INSEAM TRIMMER: KRISHNA 10/30/18720 RPT#: [id number] DC DATE:10/27/18 STATUS: DIS IN [facility] [address] [place] [address] END OF REPORT
== END 2018-10-27 15:35 | DRG 291 ==
LOC: D.ER 01:19 → D.M2 01:54
PROVIDERS: Emergency Medicine; ADMIT Family Medicine; ATTEND Family Medicine
DX: I11.0 Hypertensive heart disease with heart failure (principal); J96.90 Respiratory failure, unspecified, unspecified whether with hypoxia or hypercapnia; I50.33 Acute on chronic diastolic (congestive) heart failure; J43.9 Emphysema, unspecified; E11.40 Type 2 diabetes mellitus with diabetic neuropathy, unspecified; F32.9 Major depressive disorder, single episode, unspecified; F41.9 Anxiety disorder, unspecified; E11.65 Type 2 diabetes mellitus with hyperglycemia; Z66 Do not resuscitate